=== PATIENT | female | born 1990 | race Caucasian/White ===

== ENCOUNTER → 2019-07-12 09:03 | Outpatient (CLI) | payer OTHER, SELFPAY ==
[2019-07-12 08:34] VITALS: BMI 22.8
[2019-07-12 09:47] LABS: Absolute Lymphocyte Count 1.71 X10^3/uL (0.83-4.51); Absolute Neutrophil Count 8.3 X10^3/uL (2.0-7.7); Basophil# 0.03 X10^3/uL; Basophil% 0.3 % (0-1); Eosinophil# 0.06 X10^3/uL; Eosinophils% 0.6 % (0-5); Hemoglobin 9.7 g/dL (12.0-15.0); Lymphocyte # 1.71 X10^3/ul (4.0); Lymphocyte % 15.7 % (19-41); Mean Corp Hgb Conc 32.3 g/dL (32-36); Mean Corpuscular Volume 89.6 fL (81-99); Mean Platelet Vol. 10.2 fl (6.2-12.0); Monocyte# 0.62 X10^3/uL; Monocyte% 5.7 % (0-10); NRBC Flagged by Analyzer 0 % (0-5); Neutrophil # 8.33 X10^3/uL (2.7-7.7); Neutrophil % 76.6 % (47-70); Platelet Count 205 K/mm3 (150-450); RBC Distribution Width CV 12.7 % (11.6-14.6); RBC Distribution Width SD 41.6 fl (35.1-43.9); Red Blood Count 3.35 M/mm3 (4.2-5.4); White Blood Count 10.9 K/mm3 (4.4-11.0)
[2019-07-12 09:59] LABS: Glucose Challenge Gest 1H 50g 128 mg/dL (70-140)
== END ==
PROVIDERS: Referring Provider Obstetrics & Gynecology; Visit Provider Obstetrics & Gynecology
DX: Z34.92 Encounter for supervision of normal pregnancy, unspecified, second trimester (principal); Z3A.27 27 weeks gestation of pregnancy
CPT/HCPCS: 36415; 82950; 85025

== ENCOUNTER → 2019-08-11 09:54 | Outpatient (CLI) | payer OTHER, SELFPAY ==
[2019-08-11 09:35] VITALS: BMI 22.8
[2019-08-11 10:08] LABS: Absolute Lymphocyte Count 1.46 X10^3/uL (0.83-4.51); Absolute Neutrophil Count 6.5 X10^3/uL (2.0-7.7); Basophil# 0.02 X10^3/uL; Basophil% 0.2 % (0-1); Eosinophil# 0.05 X10^3/uL; Eosinophils% 0.6 % (0-5); Hematocrit 33.1 % (37-47); Hemoglobin 10.7 g/dL (12.0-15.0); Lymphocyte # 1.46 X10^3/ul (4.0); Lymphocyte % 16.8 % (19-41); Mean Corp Hgb Conc 32.3 g/dL (32-36); Mean Corpuscular Hgb 30.6 pg (27.0-32.0); Mean Corpuscular Volume 94.6 fL (81-99); Mean Platelet Vol. 9.8 fl (6.2-12.0); Monocyte# 0.59 X10^3/uL; Monocyte% 6.8 % (0-10); NRBC Flagged by Analyzer 0 % (0-5); Neutrophil # 6.45 X10^3/uL (2.7-7.7); Neutrophil % 74.4 % (47-70); Platelet Count 180 K/mm3 (150-450); RBC Distribution Width CV 16.9 % (11.6-14.6); RBC Distribution Width SD 58.4 fl (35.1-43.9); White Blood Count 8.7 K/mm3 (4.4-11.0)
== END ==
PROVIDERS: Referring Provider Obstetrics & Gynecology; Visit Provider Obstetrics & Gynecology
DX: O99.019 Anemia complicating pregnancy, unspecified trimester (principal); D64.9 Anemia, unspecified; Z3A.00 Weeks of gestation of pregnancy not specified
CPT/HCPCS: 36415; 85025

== ENCOUNTER → 2019-09-16 | Outpatient (CLI) | payer OTHER, SELFPAY ==
[2019-09-16 09:21] VITALS: BMI 22.8
== END | disposition home or self-care (01) ==
LOC: LABSPEC 15:59
PROVIDERS: Referring Provider Obstetrics & Gynecology; Visit Provider Obstetrics & Gynecology
DX: O26.20 Pregnancy care for patient with recurrent pregnancy loss, unspecified trimester (principal); Z3A.00 Weeks of gestation of pregnancy not specified
CPT/HCPCS: 87081

== ENCOUNTER 2019-09-29 18:40 | Inpatient (IN) | payer OTHER, SELFPAY ==
[2019-08-11 09:35] VITALS: BMI 22.8
[2019-09-28 14:31] VITALS: BMI 22.8
[2019-09-29] VITALS (55 sets, daily range): BP systolic 90–131; BP diastolic 52–80; PULSE 69–115; TEMP 36.2–36.8; O2SAT 87–100; BMI 27.3
[2019-09-29] MEDS: Lactated Ringers 1,000 ML 50 ML IV (19:15)
[2019-09-29] MEDS: Lactated Ringers 500 ML 999 ML IV ×2 (19:16→22:14)
[2019-09-29 19:42] LABS: Absolute Lymphocyte Count 1.49 X10^3/uL (0.83-4.51); Absolute Neutrophil Count 11.8 X10^3/uL (2.0-7.7); Basophil# 0.02 X10^3/uL; Basophil% 0.1 % (0-1); Eosinophil# 0.03 X10^3/uL; Eosinophils% 0.2 % (0-5); Hematocrit 37.6 % (37-47); Hemoglobin 12.3 g/dL (12.0-15.0); Lymphocyte # 1.49 X10^3/ul (4.0); Lymphocyte % 10.4 % (19-41); Mean Corp Hgb Conc 32.7 g/dL (32-36); Mean Corpuscular Hgb 30.7 pg (27.0-32.0); Mean Corpuscular Volume 93.8 fL (81-99); Mean Platelet Vol. 11.9 fl (6.2-12.0); Monocyte# 0.91 X10^3/uL; Monocyte% 6.4 % (0-10); NRBC Flagged by Analyzer 0 % (0-5); Neutrophil % 82.5 % (47-70); Platelet Count 165 K/mm3 (150-450); RBC Distribution Width CV 15.5 % (11.6-14.6); RBC Distribution Width SD 53.8 fl (35.1-43.9); Red Blood Count 4.01 M/mm3 (4.2-5.4); White Blood Count 14.3 K/mm3 (4.4-11.0)
--- NOTE | 2019-09-29 19:51 | HP.PCM_ITS ---
- Problem List (1) Active labor at term Status: Acute (2) Anemia affecting Status: Acute Comment: stable iron. 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 weekly nsts until delivery. AC>99 percentile (5) Polyhydramnios affecting in third trimester Status: Acute Comment: weekly nst and IOL 39 weeks (6) Status: Acute Qualifiers: Comment: Carrier screening neg- 07/2018; declined NIPT. declined AFP. anatomy reviewed. (7) Pyelectasis of fetus on ultrasound Status: Acute Comment: nipt declined. resolved on last us. (8) Septate uterus Status: Acute Comment: Removed Dr. Richardson History and Physical Date of Admission: 09/29/19 Intake Vital Signs 09/28/19 Height 5 ft 9 in 09/28/19 Weight: 186 lb 8 oz 09/28/19 BMI 27.5 09/28/19 BP 118/88 H Intake Visit Reasons: 39 WK OB/NST Zanjero Required: No Is patient in pain?: No Allergies No Known Allergies Allergy (Verified 09/28/19 14:26) Medications aspirin 81 mg tablet,delayed release 81 mg PO DAILY 03/25/19 [History Confirmed 09/28/19] docosahexaenoic acid 200 mg capsule mg PO cap 03/25/19 [History Confirmed 09/28/19] ferrous sulfate 325 mg (65 mg iron) tablet 325 mg PO DAILY 09/09/19 [History Confirmed 09/28/19] Last Menstral Period: 11/11/18 Zika: Zika virus screening: Negative : No PFSH PFSH Medical History Septate uterus (Acute) Dysmenorrhea (Acute) Endometriosis determined by laparoscopy (Acute ~09/30/18) Mullerian anomaly of uterus (Resolved) Surgical History Chromotubation (Acute ~09/30/18) Hx of laparoscopy (Acute ~09/30/18) Hysteroscopic Metroplastic (Acute ~09/30/18) S/P arthroscopy of right shoulder (Resolved) Family History Father Lymphoma Prostate cancer Grandmother Heart disease Grandfather Heart disease Social History (Updated 09/28/19 @ 15:[address] Leonora Maher MD) Smoking Status: Never smoker alcohol intake: never substance use type: does not use caffeine: No what type of physical activity do you participate in: walking, weight training frequency: 3-4 times per week do you feel safe at home: Yes additional social history: Hwfpgry-Hmwv-DUND Patient is RN Pregancy History 3 Elective abortions Hx Para 0 Spontaneous abortions 2 Hx # Term Pregnancies Ectopic pregnancies Hx # Pregnancies Multiple births # of living children HPI 39 WK OB/NST: Details: LORI CESAR is a 28 year old G3, P0 at 38 weeks 5 days presents in active labor. Patient has had irregular contractions for the last 3 hours denies any vaginal bleeding or loss of fluid admits good movement. She has had a complicated by mild pyelectasis of the fetus and increased abdominal circumference and polyhydramnios. She had negative diabetes screening. OB Visit KAYLAH Calculator Estimated Delivery Date Method Current WG Current Estimate 10/08/19 Ultrasound #1 38w 4d Other Estimates 10/04/19 LMP (Certain) 39w 1d Expected Delivery Route/Plan childbirth classes in august Labor Preferences- labor support person: Horace pain management options preferred: epidural, minimal intervention cut cord/dad catch: yes : yes PP control planned: iud 6 weeks PP discussed possible routes of delivery and associated risks: yes no additional questions special requests: none Specific Issue/Plans flu vaccine: given tdap vaccine: given rhogam: na LARC form signed: declined movement and labor precautions reviewed. Problem list reviewed and updated with the most current plan of care details and appropriate orders placed. Relevant counseling for the gestational age provided. Continue routine care and follow up unless otherwise noted in visit notes/problem list details Initial Weight: 155 lb Date EGA Weight BP Urine Prot Glucose FHR FuHt Pres Dilation Effaced St Visit Note 03/25/19 11w 6d 155 lb (+0 oz) 111/72 Negative Negative 166 Trasnfer from RGI. Manageable nausea. No spotting or bleeding. FHT confirm with US 04/19/19 15w 3d 155 lb (+0 oz) 104/62 Negative Negative 145 no vb lof no regular ctx 05/17/19 19w 3d 160 lb 2 oz (+5 lb 2 oz) 129/80 Negative Negative 150 SM- no vb cramping 06/14/19 23w 3d 166 lb 3 oz (+11 lb 3 oz) 116/64 Negative Negative 145 SM- no vb cramping plan repeat growth us 07/12/19 27w 3d 171 lb (+16 lb) 130/82 Negative Negative 140 28 SM- no vb lof good fm no regular ctx 07/30/19 30w 0d 174 lb (+19 lb) 102/60 Negative Negative 145 31 SM- no vb lof fm no regular ctx 08/11/19 31w 5d 175 lb (+20 lb) 108/72 Negative Negative 145 33 SM- no vb lof no reg ctx 09/09/19 35w 6d 185 lb (+30 lb) 122/82 Negative Negative 140 35 Cephalic SM- no vb lof good fm no regular ctx 09/16/19 36w 6d 185 lb 2 oz (+30 lb 2 oz) 120/80 Negative Negative 140 39 Cephalic 2 40 -3 SM- no vb lof good fm no regular ctx gbs done 09/23/19 37w 6d 186 lb (+31 lb) 120/82 130 Cephalic 3 50 -2 SM- discussed no vb lof g ood fm no reuglar ctx discussed IOL rec by [facility] 09/28/19 38w 4d 186 lb 8 oz (+31 lb 8 oz) 118/88 Negative Negative 130 42 Cephalic 4 60 -2 SM- no vb lof good fm irr egular ctx plan IOL 39 weeks Notes Visit Date: 09/28/19 ??No visit notes to display Visit Date: 09/23/19 ??No visit notes to display Visit Date: 09/16/19 ??No visit notes to display Visit Date: 09/09/19 ??No visit notes to display Visit Date: 08/11/19 ??No visit notes to display Visit Date: 07/30/19 ??No visit notes to display Visit Date: 07/12/19 ??No visit notes to display Visit Date: 06/14/19 ??No visit notes to display Visit Date: 01/13/20 ??No visit notes to display Visit Date: 04/19/19 ??no vb lof no regular ctx ??Leonora Maher MD on 04/19/19 Visit Date: 03/25/19 ??Trasnfer from [facility]. Manageable nausea. No spotting or bleeding. FHT confirm with US ??RASHEED Diggs on 03/25/19 ACOG First Trimester First Trimester: Desire for , Anticipated Course of Care, Toxoplasmosis Precations, Use of Any medications, Sexual activity, Exercise, Sauna/Hot tub use, Seat Belt use, , Indications for US and Screening for Aneuploidy; discussed Alcohol, discussed Tobacco Cessation, discussed Illicit/Recreational Drug/Substance Use, discussed Intimate Partner Violence, discussed Unstable Housing or discussed Environmental/Work Hazards Second Trimester Second Trimester: Signs and Symptoms of Labor, Selecting a care provider, Reproductive Life Planning, Care Planning, Tobacco Cessation, Depression/Anxiety and Intimate Partner Violence Third Trimester Third Trimester: Pain Management Plans, Labor support person(s), Immediate Larc, Movement Monitoring and Feeding Yes ; discussed Trial of Labor after Counseling or discussed Circumcision pr eference Diagnostics Diagnostics Diagnostics Glucose 1 Hr 50 gm 128 mg/dL (70-140) 07/12/19 Hgb 10.7 g/dL (12.0-15.0) L 08/11/19 Hct 33.1 % (37-47) L 08/11/19 Details: HIV: Urine Culture: Sequential Screen: NIPT Screen: ROS Const Reports system reviewed and no additional complaints, except as docu Card Reports system reviewed and no additional complaints, except as docu Resp Reports system reviewed and no additional complaints, except as docu GI Reports system reviewed and no additional complaints, except as docu, Reports nausea Reports system reviewed and no additional complaints, except as docu Musc Reports system reviewed and no additional complaints, except as docu Exam Const General: cooperative, healthy appearing, comfortable, anxious HENMT Head: normal to inspection Nose: external nose normal Face and sinus: normal facial exam Neck Neck: normal visual inspection, full ROM, no lymphadenopathy Thyroid: thyroid normal Chest Chest palpation & inspection: normal inspection of the chest Resp Effort & Inspection: normal respiratory effort GI Inspection: normal to inspection Palpation: soft, other (gravid uterus) Other: vertex and large size for gestational age Other: Cervical Exam: Extrem General: pedal edema Office Procedures OB NST Non-Stress Test Indications for Monitoring: Yes other (polyhydramnios) Heart Rate Baseline: 130 Heart Rate Variability: moderate Movement: Present Heart Rate Accelerations: Present Decelerations: Absent Contractions: Absent Impression: Yes Reactive Non-Stress Test Category 1 Results POC Urinalysis 2 Dip (Clinic) Office Urine Glucose Negative Last Edit by Peyton Lee on 09/28/19 14:38 Office Urine Protein Negative Last Edit by Peyton Lee on 09/28/19 14:38 Assessment & Plan Problems 1. Polyhydramnios affecting in third trimester O40.3XX0 weekly nst and IOL 39 weeks 2. Macrosomia of fetus affecting management of mother in torres in third trimester O36.63X0 MFM recommendation for 39 week delivery. weekly nsts until delivery. AC>99 percentile 3. Anemia affecting O99.019 stable iron. 4. Pyelectasis of fetus on ultrasound O35.8XX0 nipt declined. resolved on last us. 5. Septate uterus Q51.[address] Richardson 6. 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 38 weeks gestation of Z3A.38 Carrier screening neg- 07/2018; declined NIPT. declined AFP. anatomy reviewed. 28-year-old at 38 weeks 5 days presents in active labor 5 cm dilated Patient presents IAL, plan expectant management for , [pitocin/AROM if needed]. Pain management: [plans epidural]. GBS negative Management of any complications: [none] I have reviewed the [facility] and made any clinically relevant updates. 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
[2019-09-29] MEDS: fentaNYL-bupivacaine (epidural) 100 ML BAG EPIDURAL (20:39)
[2019-09-30] VITALS (62 sets, daily range): BP systolic 92–186; BP diastolic 51–141; PULSE 65–190; RESP 14–18; TEMP 36.4–37.3; O2SAT 83–100
[2019-09-30] MEDS: fentaNYL-bupivacaine (epidural) 100 ML BAG EPIDURAL ×2 (00:52→06:14)
[2019-09-30] MEDS: Lactated Ringers 1,000 ML 200 ML IV ×2 (01:21→06:31)
[2019-09-30] MEDS: Ondansetron 4 MG/2 ML Vial IV (01:47)
--- NOTE | 2019-09-30 06:34 | PCM.PN.BLA ---
Progress Note epidural replaced, fht 160-165 min- mod variability early decels cat II tracing, will resume pushing once complete with epidural. afebrile STROKE Vital Signs/Narrative: Vital Signs Temp Pulse BP Pulse Ox 09/30/19 06:32 88 111/60 09/30/19 06:27 81 129/73 H 09/30/19 06:22 76 122/72 H 09/30/19 06:17 69 137/81 H 09/30/19 06:12 78 120/68 09/30/19 06:03 98 96 09/30/19 05:58 90 95 09/30/19 05:53 89 96 09/30/19 04:53 98.0 F 09/30/19 04:41 72 105/57 L 09/30/19 04:36 81 108/54 L 09/30/19 04:32 74 115/57 L 09/30/19 04:26 88 105/55 L 09/30/19 04:22 94 93 09/30/19 04:21 190 H 186/140 H 09/30/19 04:20 171/141 H 09/30/19 04:13 75 108/58 L 09/30/19 04:10 98.6 F 09/30/19 04:08 76 104/58 L 09/30/19 04:02 81 128/85 H 09/30/19 03:02 98.9 F 09/30/19 02:40 81 123/60 H 09/30/19 02:35 100 139/105 H
[2019-09-30] MEDS: Lactated Ringers 500 ML 999 ML IV (06:49)
--- NOTE | 2019-09-30 07:45 | OP.PCM_ITS ---
Problem List (1) Active labor at term Status: Acute (2) Anemia affecting Status: Acute Comment: stable iron. 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 weekly nsts until delivery. AC>99 percentile (5) Polyhydramnios affecting in third trimester Status: Acute Comment: weekly nst and IOL 39 weeks (6) Status: Acute Qualifiers: Comment: Carrier screening neg- 07/2018; declined NIPT. declined AFP. anatomy reviewed. (7) Pyelectasis of fetus on ultrasound Status: Acute Comment: nipt declined. resolved on last us. (8) Septate uterus Status: Acute Comment: Removed Dr. Richardson Vaginal Delivery Maternal Presentation: Active Labor ial 8w5d Amniotic Fluid Description: Clear Final KAYLAH: 10/08/19 Gestational age: 39 Weeks and 0 Days Date of Procedure: 09/30/19 Pre-Operative Diagnosis: ial Post-Operative Diagnosis: same Surgery/ Procedure Performed: Spontaneous Vaginal Delivery Type of Anesthesia: Epidural Description of Procedure: Patient began pushing and delivered the head in the direct OP presentation. The head was delivered atraumatically. The anterior and posterior shoulders de livered without complication followed by the rest of the and the infant was placed on the maternal abdomen. Delayed cord clamping was employed for approximately 60 seconds. Cord was clamped and cut and gentle traction was applied to the cord and the placenta delivered spontaneously immediately following it was noted to be intact with three-vessel cord. The perineum and vagina were inspected and noted to have a second degree laceration repaired in the usual fashion. EBL was 300 cc. Patient and infant tolerated delivery well. Presentation: ROP Placental Delivery Description: Spontaneous Placenta Disposition: [facility] Cord Vessel Description: 3 Vessels Cord Entanglement: None Estimated Blood Loss: 300 A gender: Male Episiotomy Description: None Laceration: Perineal Extension/lac, 2nd degree Medications given after delivery: IV Pitocin Complications: None Multi Select Codes - Urinary/Genital Urinary/Genital CPT Codes: 27707 Vaginal Delivery [facility]
--- NOTE | 2019-09-30 07:57 | NURSING ---
RN confirmed that patient is okay with all three baby medications.
[2019-09-30] MEDS: Oxytocin 30 units/NS 500 ml 30 UNITS/500 ML IV.SOLN 334 UNITS IV (08:05)
[2019-09-30] MEDS: Naproxen 250 MG Tablet 500 MG PO ×2 (10:52→19:54)
[2019-09-30] MEDS: Acetaminophen 500 MG Tablet 1000 MG PO (12:15)
[2019-09-30] MEDS: oxyCODONE 5 MG Tablet PO (22:00)
[2019-10-01] VITALS (8 sets, daily range): BP systolic 100–115; BP diastolic 63–72; PULSE 71–75; RESP 14–18; TEMP 36.2–36.4
[2019-10-01] MEDS: Acetaminophen 500 MG Tablet 1000 MG PO ×2 (00:30→09:35)
--- NOTE | 2019-10-01 01:22 | NURSING ---
Swelling reduced from previous assessment. Pt grooving lathe tender. RN removed celis catheter at this time per MD orders. Catheter intact, pt tolerated well. RN encouraged pt to continue drinking water and notify RN if unable to void. RN also encouraged pt to continue taking pain medication when available to better manage pain.
[2019-10-01] MEDS: oxyCODONE 5 MG Tablet PO (03:31)
[2019-10-01] MEDS: Naproxen 250 MG Tablet 500 MG PO (04:11)
--- NOTE | 2019-10-01 04:51 | DCINST_ITS ---
Discharge Diet: No Restrictions Discharge Activity: Return to Normal Activity, May not drive while taking narcotic pain medications., May Shower May resume sexual activity in: 4-6 weeks Call your doctor if your incision/area has: Continuous Slow Oozing, Sudden Increased Bleeding, Increased Pain/ Swelling, Increased Redness, Foul Smelling Discharge Additional Instructions: If you experience any of the following, contact your healthcare provider. * Bleeding that soaks a pad every hour for 2 hours * Fever 100.4 or higher * Unrelieved incision or abdominal pain * Swelling, redness, discharge or bleeding from your incision or episiotomy site * Your incision begins to separate * Problems urinating (including inability to urinate or burning while urinating). * Visual changes * Severe headache * Flu-like symptoms * Pain or redness in one of both of your breasts * Pain, warmth, tenderness or swelling in your legs, especially the calf area * Frequent nausea and vomiting * Symptoms of depression or anxiety If you experience any of the following, call 911 or go to the nearest Emergency Room. * Chest pain * Problems breathing * Seizure activity * Partial or complete paralysis of a body part, slurred speech, weakness or drooping of the face, or a sudden inability to walk or hold your balance Allergies/Adverse Reactions: Allergies No Known Allergies Allergy (Verified 09/29/19 19:45) Medications to take at Discharge docosahexaenoic acid 200 mg capsule 200 mg PO DAILY cap 03/25/19 ferrous sulfate 325 mg (65 mg iron) tablet 325 mg PO DAILY 09/09/19 Pnv No.95/Ferrous Fum/Folic AC [ Vitamin Tablet] 1 tab PO DAILY 09/29/19 Please Follow Up With: Leonora Maher MD - [phone] When: Call to make an appointment with your doctor in 6 weeks. If you had elevated Blood pressure or 4th degree laceration you will need to be seen in 2 weeks. Primary Care Physician: Care Physician,No Primary [Primary Care Provider] - Test Results: Test results from this visit will be discussed in further detail at your follow- up appointment, if applicable.
--- NOTE | 2019-10-01 04:51 | PCM.PN.OB ---
Patient Problems: Active and Suspected Problems (Last Reviewed 09/28/19 @ 14:26 by Peyton Lee) Active labor at term (Acute) Subjective: doing well no complaints pain controlled no CP SOB N V ambulating well tolerating po lochia moderate, going well - Physical Exam Vitals/I&O's: Vital Signs Temp Pulse Resp BP Pulse Ox 97.5 F L 71 16 115/72 97 10/01/19 04:14 10/01/19 04:14 10/01/19 04:14 10/01/19 04:14 09/30/19 19:59 Oxygen Delivery Method Room Air Weight: 185 lb 8 oz Body Mass Index (BMI) 27.3 Intake and Output for Last 24 Hours 09/29/19 09/30/19 10/01/19 23:59 23:59 23:59 Intake Total 1484.16 / 1484.16 2709.17 / 2709.17 Output Total 2100 / 2100 Balance 1484.16 / 1484.16 609.17 / 609.17 General: Alert, Oriented x3 Current Medications Acetaminophen (Tylenol) 1,000 mg PO Q8H PRN PRN PRN Reason: Pain Score 1-3/10 Last Admin: 10/01/19 00:30 Dose: 1,000 mg Documented by: Bisacodyl (Dulcolax) 10 mg RECTAL UD PRN PRN Reason: If no BM Dibucaine (Dibucaine) 1 applic TOPICAL TID PRN PRN; Protocol PRN Reason: Discomfort Hydrocortisone (Hytone) 1 applic TOPICAL TID PRN PRN; Protocol PRN Reason: Discomfort Methylergonovine Maleate (Methergine) 0.2 mg IM X1 PRN PRN Reason: Excess bleeding/uterine atony Naproxen (Naprosyn) 500 mg PO Q8H PRN PRN PRN Reason: Pain Score 1-3/10 Last Admin: 10/01/19 04:11 Dose: 500 mg Documented by: Ondansetron HCl (Zofran) 4 mg IV Q4H PRN PRN PRN Reason: Nausea Oxycodone HCl (Oxyir) 5 - 10 mg PO Q4H PRN PRN PRN Reason: Pain Score 4-10/10 Last Admin: 10/01/19 03:31 Dose: 5 mg Documented by: Senna/Docusate Sodium (Senokot-S, Jeanna-Colace) 1 - 2 tablet PO DAILY PRN PRN PRN Reason: Constipation Simethicone (Mylicon) 80 mg PO PCHS PRN PRN Reason: Indigestion/Stomach pain Sodium Chloride () 5 - 15 ml IV UD PRN PRN Reason: SALINE FLUSH Medical Necessity - Tobacco Use Smoking Status: Never smoker Assessment/Plan All Active Problems (Last Reviewed 09/28/19 @ 14:26 by Peyton Lee) Active labor at term (Acute) Polyhydramnios affecting in third trimester (Acute) Macrosomia of fetus affecting management of mother in torres in third trimester (Acute) Anemia affecting (Acute) Pyelectasis of fetus on ultrasound (Acute) Septate uterus (Acute) 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 routine post delivery care 2. breast feeding- support given 3. rh positive 4. rubella immune
--- NOTE | 2019-10-01 16:38 | NURSING ---
Late entry 09/30/19-1700- Spoke with SM about having to have urinary cath x 2 with output at 900cc d/t urinary retention. Plan to leave celis cath in for 6 hours, then D/C and reassess urine output.
== END 2019-10-01 12:50 | disposition home or self-care (01) | DRG 807 ==
PROVIDERS: Admitting Provider Obstetrics & Gynecology; Referring Provider Obstetrics & Gynecology; Visit Provider Obstetrics & Gynecology
DX: O99.02 Anemia complicating childbirth (principal); D64.9 Anemia, unspecified; O26.23 Pregnancy care for patient with recurrent pregnancy loss, third trimester; O36.63X0 Maternal care for excessive fetal growth, third trimester, not applicable or unspecified; O40.3XX0 Polyhydramnios, third trimester, not applicable or unspecified; O76 Abnormality in fetal heart rate and rhythm complicating labor and delivery; O70.1 Second degree perineal laceration during delivery; Z79.899 Other long term (current) drug therapy; Z3A.39 39 weeks gestation of pregnancy; Z37.0 Single live birth
CPT/HCPCS: 59025; 59050; 85025; 86850; 86900; 86901; 87635; 99218; G2023; J7120; G0378; J2405; J3490; U0004

== ENCOUNTER → 2020-12-04 09:00 | Outpatient (CLI) | payer OTHER, SELFPAY ==
[2020-12-01 09:20] VITALS: BMI 21.5
[2020-12-04 09:50] LABS: hCG Titer Quant., Serum 1237 mIU/mL (1-3)
== END ==
PROVIDERS: Referring Provider Obstetrics & Gynecology; Visit Provider Obstetrics & Gynecology
DX: N91.2 Amenorrhea, unspecified (principal)
CPT/HCPCS: 36415; 84702

== ENCOUNTER → 2020-12-06 08:37 | Outpatient (CLI) | payer OTHER, SELFPAY ==
[2020-12-01 09:20] VITALS: BMI 21.5
[2020-12-06 09:56] LABS: hCG Titer Quant., Serum 2298 mIU/mL (1-3)
== END ==
PROVIDERS: Referring Provider Obstetrics & Gynecology; Visit Provider Obstetrics & Gynecology
DX: N91.2 Amenorrhea, unspecified (principal)
CPT/HCPCS: 36415; 84702

== ENCOUNTER → 2021-01-10 | Outpatient (CLI) | payer OTHER, SELFPAY | END | disposition home or self-care (01) | LOC: LABSPEC 15:37 | PROVIDERS: Referring Provider Obstetrics & Gynecology; Visit Provider Obstetrics & Gynecology | DX: Z12.4 Encounter for screening for malignant neoplasm of cervix (principal) | CPT/HCPCS: 87624; 88175; G0145 ==

== ENCOUNTER 2021-01-12 10:01 | Day surgery (SDC) | payer OTHER, SELFPAY ==
--- NOTE | 2021-01-12 | POC_PTH ---
PATIENT: LORI CESAR [place] [facility] [id number] AGE/SX: 30/ ROOM: RE01/12/[address]: Dr. Leonora Maher MD : 1990 BED: DIS: 01/12/2021 SPEC #: [id number] RECD: 01/12/21 13:18 STATUS: BLAISE RESouleymane #: [id number] FRANCES: 01/12/21 00:[address]: Leonora Maher DEPT: SURGICAL PATHOLOGY RECD BY: Yordy Amador ENTERED: 01/12/21 13:18 SP TYPE: PROD CONC OTHR DR: No Primary Care Phys Tissues: Product of conception, NOS Procedures: Surgery Specimen Level IV HEADER OPERATION: Dilation and curettage, suction PRE-OP DIAGNOSIS: Missed TISSUE SUBMITTED: Products of conception (Anora) MICROSCOPIC DIAGNOSIS Products of conception: [place]id[place], gestational endometrium and immature chorionic villi (products of conception). See comment. SJ:paul 01/15/2021 COMMENT Results of Anora study will be reported separately as an addendum. MICROSCOPIC DESCRIPTION Slides are reviewed. GROSS DESCRIPTION Received in fixative is one container labeled with the patient's name and designated products of conception. The specimen consists of multiple irregular fragments of light coreas soft tissue that in aggregate measure 10 x 10 x 0.5 cm. [employer] sections are submitted in one cassette. A portion of tissue is submitted for Anora study. / AM:apul 01/12/21 TC:5 CPT: 50539
[2021-01-12 10:35] VITALS: BP 121/77; PULSE 88; RESP 18; TEMP 36.3; O2SAT 100; BMI 21.2
[2021-01-12] MEDS: Lactated Ringers 1,000 ML 100 ML IV (10:40)
[2021-01-12 10:54] LABS: Absolute Lymphocyte Count 1.22 X10^3/uL (0.83-4.51); Absolute Neutrophil Count 4.4 X10^3/uL (2.0-7.7); Basophil# 0.02 X10^3/uL; Basophil% 0.3 % (0-1); Eosinophil# 0.09 X10^3/uL; Eosinophils% 1.5 % (0-5); Hematocrit 39.9 % (37-47); Lymphocyte # 1.22 X10^3/ul (0.83-4.51); Lymphocyte % 20.1 % (19-41); Mean Corp Hgb Conc 32.6 g/dL (32-36); Mean Corpuscular Hgb 29.5 pg (27.0-32.0); Mean Corpuscular Volume 90.5 fL (81-99); Mean Platelet Vol. 9.5 fl (6.2-12.0); Monocyte# 0.37 X10^3/uL; Monocyte% 6.1 % (0-10); NRBC Flagged by Analyzer 0 % (0-5); Neutrophil # 4.35 X10^3/uL (2.7-7.7); Neutrophil % 71.7 % (47-70); Platelet Count 193 K/mm3 (150-450); RBC Distribution Width CV 12.1 % (11.6-14.6); RBC Distribution Width SD 40.4 fl (35.1-43.9); Red Blood Count 4.41 M/mm3 (4.2-5.4); White Blood Count 6.1 K/mm3 (4.4-11.0)
[2021-01-12] MEDS: Doxycycline 100 MG CAPSULE PO (11:07)
--- NOTE | 2021-01-12 12:33 | HP.PCM_ITS ---
History and Physical Date of Admission: 01/12/21 Intake Visit Reasons: NOB LMP 10/28/20 Chief Complaint: NEW OB LMP 10/28/20 Full Stack Software Developer Required: No Is patient in pain?: No Allergies No Known Allergies Allergy (Verified 12/22/20 13:14) Medications multivitamin no.47-iron fum 27 mg-folate no.1 1 mg-dha 300 mg capsule cap PO 12/22/20 [History Confirmed 01/10/21] Last Menstral Period: 10/28/20 Zika: Zika virus screening: Negative : No PFSH PFSH Medical History COVID-19 Dysmenorrhea Endometriosis determined by laparoscopy (~09/30/18) Mullerian anomaly of uterus Septate uterus Surgical History Chromotubation (~09/30/18) Hx of laparoscopy (~09/30/18) Hysteroscopic Metroplastic (~09/30/18) S/P arthroscopy of right shoulder Family History Father Lymphoma Prostate cancer Grandmother Heart disease Grandfather Heart disease Social History Smoking Status: Never smoker alcohol intake: never substance use type: does not use caffeine: No what type of physical activity do you participate in: walking and weight training frequency: 3-4 times per week do you feel safe at home: Yes additional social history: [id number] Patient is RN Pregancy History 4 Elective abortions Hx Para 1 Spontaneous abortions 2 Hx # Term Pregnancies 1 Ectopic pregnancies Hx # Pregnancies Multiple births # of living children 1 Past Pregnancies Del. Date Name GA/Weeks Outcome Route Bth Weight Infant Gen Labor Lgth Anesthesia Del Locatn Provider FOB 09/30/19 Derek 38 live - full term 10lbs 5oz Male 12 hours epidural [facility] Dr. Leonora Vu Delivery Date: 09/30/19 Poly, macrosomia Lesia Hinojosa HPI NOB LMP 10/28/20 Details: LORI CESAR is a 30 year old who presents for New OB visit. she denies any bleeding or significant cramping denies any fevers or pain. she has had a positive test for at least 4 weeks and had appropriately rising quants 48 hours apart preivously. repeat viti 01/12 confirmed no FHT same CRL 6 mm with demise confirmed OB Visit KAYLAH Calculator Estimated Delivery Date Method Current WG Current Estimate 08/04/21 LMP (Certain) 10w 5d Estimated Due Date: 08/04/21 Expected Delivery Route/Plan Labor Preferences- CB/BF classes: [] labor support person: [] labor intervention preferences: [] pain management options preferred: [] cut cord/dad catch: [] : [] PP control planned: [] discussed possible routes of delivery and associated risks: [] special requests: [] Specific Issue/Plans Covid status: pos in june, counseled regarding risk of covid in vs vaccination and declined vaccination Flu vaccine: [] Tdap vaccine: [] Rhogam: [] LARC form signed: [] Problem list reviewed and updated with the most current plan of care details and appropriate orders placed. Relevant counseling for the gestational age provided. Continue routine care and follow up unless otherwise noted in visit notes/problem list details Initial Weight: 144 lb Date EGA Weight BP Urine Prot Glucose FHR FuHt Pres Dilation Effaced St Visit Note 01/10/21 10w 4d 144 lb (+0 oz) 114/72 SM- CRL cons with LMP no FHT seen and CRL 6 mm not consistent with LMP MSD 7 w 23 mm. unclear viability will fu in 2 days and plan suction d and c if unviable Menstrual History Last Menstral Period: 10/28/20 Reported LMP: definite Normal amount/duration: Yes On hormonal BC at conception: No Antepartum Record Genetic Screening: Congenital Heart Defect: Other, Neural Tube Defect: Other, Hemoglobinopathy Or Carrier: Other, Cystic Fibrosis: Other, Chromosome Abnormality: Other, Russell-Sachs: Other, Hemophilia: Other, Intellectual Disability/Autism: Other, Recurrent Loss/Stillbirth: Patient (patient), Other Structural Defect: Other, Other Genetic Disease: Other and Maternal Metabolic Disorder: Other Infection History: Live with someone with TB or Exposed to TB: No, Patient or Partner has history of Genital Herpes: No, Rash or Viral illness since last mentrual period: No, Prior GBS-Infected child: No, History of STD: No, HIV Infection: No, History of Hepatitis: No, Recent travel outside of [place]: No, Concern for hepatitis exposure: No and Varicella immune: Yes Medical History Medical History: Positive: Infertility and Negative: Diabetes, Hypertension, Heart disease, Auto-immune disorder, Kidney disease/UTI, Neurologic/epilepsy, Psychiatric, Depression/ depression, Hepatitis/liver disease, Varicosities/phlebitis, Thyroid dysfunction, Trauma/domestic violence, History of blood transfusions, D (Rh) Sensitized, Pulmonary (e.g.,TB,Asthma), Seasonal allergies, Drug/latex allergies/reactions, Breast, Inside Barrel Polisher surgery, Operations/hospitalizations, Anesthetic complications, History of abnormal pap, Uterine anomaly/georges, Anti-retroviral treatment, Relevant family history and Other ACOG First Trimester First Trimester: Desire for , Anticipated Course of Care, Toxoplasmosis Precations, Use of Any medications, Sexual activity, Exercise, Sauna/Hot tub use, Seat Belt use, , Indications for Ultrasound and Screening for Aneuploidy; Discussed Alcohol, Discussed Tobacco Cessation, Discussed Illicit/Recreational Drug/Substance Use, Discussed Intimate Partner Violence, Discussed Unstable Housing and Discussed Environmental/Work Hazards Second Trimester Second Trimester: Signs and Symptoms of Labor, Selecting a care provider, Reproductive Life Planning & Contreception, Care Planning, Tobacco Cessation, Depression/Anxiety and Intimate Partner Violence Third Trimester Third Trimester: Pain Management Plans, Labor support person(s), Immediate Larc and Movement Monitoring; Discussed Trial of Labor after Counseling and Discussed Circumcision preference ROS Const Reports system reviewed and no additional complaints, except as documented, Reports fatigue and Denies fever(s) Eyes Reports system reviewed and no additional complaints, except as documented ENT Reports system reviewed and no additional complaints, except as documented Card Denies chest pain and Denies dyspnea Resp Reports system reviewed and no additional complaints, except as documented, Denies cough and Denies dyspnea GI Denies abdominal pain and Reports nausea Reports system reviewed and no additional complaints, except as documented Musc Reports system reviewed and no additional complaints, except as documented Skin/Breast Reports system reviewed and no additional complaints, except as documented Neuro Yes system reviewed and no additional complaints, except as documented Psych Reports system reviewed and no additional complaints, except as documented Endo Reports system reviewed and no additional complaints, except as documented and Reports fatigue Exam Const General: healthy appearing, comfortable and no acute distress Orientation: alert HENMT Head: normal to inspection, normocephalic and atraumatic Ears: hearing grossly normal bilaterally and external ears normal Nose: external nose normal and nares normal Mouth: oral mucosae normal Teeth and gingiva: dentition normal Eyes General: appearance normal, both eyes and all related structures Neck Neck: normal visual inspection, no lymphadenopathy and supple Thyroid: thyroid normal Chest Chest palpation & inspection: normal inspection of the chest Breast inspection: normal inspection of the breasts and normal inspection of the axillae Breast palpation: normal palpation of the breasts and normal palpation of the axillae Resp Effort & Inspection: normal respiratory effort GI Inspection: normal to inspection Palpation: soft and no hepatosplenomegaly General: bladder normal to palpation External Female Exam: normal external appearance and normal appearance of the urethra Urethra: normal appearance of the urethra Speculum Exam - Vagina: normal appearance of the vagina and normal vaginal discharge Speculum Exam - Cervix: normal appearance of the cervix Bimanual Exam- Vagina & Uterus: normal bimanual exam, bladder normal to palpation, non-tender and other Bimanual Exam- Adnexa, other: non-tender Skin General: no rashes or lesions noted Neuro Motor: muscle tone normal throughout and no movement abnormalities noted Extrem General: normal to inspection and full ROM Supplemental Info ACOG book given and patient encouraged to read about nutrition, exercise, weight gain, and food avoidance in . Coding Level of Care Code Off vis,est,level 4 Assessment & Plan Assessment/Plan (1) Missed :
--- NOTE | 2021-01-12 12:34 | OP.PCM_ITS ---
Problems Associated Problem List Diagnoses (1) Missed : Report of Operation Pre-Operative Diagnosis: see problem list Post-Operative Diagnosis: same Surgery/Procedure Performed:: D&C hysteroscopy family and divorce legal assistant: None Type of Anesthesia: Local MAC Special Medications: none Specimen's removed: EMC Drains: none Estimated Blood Loss (mL): 50 Fluids Replaced: crystalloid Description of Procedure: Patient was prepped and draped in a normal sterile fashion under MAC anesthesia. A weighted speculum was placed in the vagina and the anterior lip of the cervix was grasped with a single-tooth tenaculum. A paracervical block was placed with 1% lidocaine. Cervix was progressively dilated to allow passage of a 5 mm hysteroscope. The lining was fully visualized and noted to have[ ] . Uterine sounded to [ ] cm. Curettage was performed and [ ] , sent to pathology. All instruments were removed from the vagina and excellent hemostasis was noted. Patient was awoken and taken to recovery in stable condition. Grafts/Implants Used: none Complications none Admit VTE Documentation VTE Present on Admission: No VTE Mechan Device Prophylaxis: SCD's Multi Select Codes Urinary/Genital Urinary/Genital CPT Codes: 56487 Hysteroscopy,EMC, Polypectomy
--- NOTE | 2021-01-12 12:37 | EX.PCM.DISCH ---
Discharge Instructions Procedure D&C Diet Discharge Diet: No restrictions Activity Discharge Activity: Return to Normal Activity, May Shower and May Take a Tub Bath (after 1 week) May resume sexual activity in: 1-2 weeks Weight Bearing Status: Weight bearing as tolerated Lifting Restrictions: none Dressing / Incision Call your doctor if you observe: Fever of 101 or Higher, Using more than 1 pad per hour, Shortness of breath and Uncontrolled pain Follow Up Care Please Follow Up With: Leonora Maher MD When: Call [phone] to schedule appointment. Test Results: Test results from this visit will be discussed in further detail at your follow-up appointment, if applicable. Discharge Plan Admission Primary Reason for Your Visit: suction d and c Attending Provider: Leonora Maher Primary Care Provider: Care Physician,Katlin Primary Discharge Orders/Prescriptions Prescriptions: New naproxen 250 MG tablet 250 - 500 mg PO Q8H PRN PRN (Reason: MILD PAIN) Qty: 30 RF: 1 oxycodone-acetaminophen [Percocet] 5-325 mg tablet 1 tab PO Q6H PRN (Reason: pain) 7 Days Qty: 10 RF: 0 Continued PNV-DHA 27 mg iron-1 mg -300 mg capsule 1 cap PO DAILY RF: 0 Referrals / Follow Up: Care Physician,No Primary [Primary Care Provider] - Disposition Disposition (needs filled in before D/C Order can be placed): Home, Self Care
[2021-01-12] MEDS: Lidocaine 1% (20 ml mdv) 20 ML Vial (12:40)
--- NOTE | 2021-01-12 12:47 | OP.PCM_ITS ---
Problems Associated Problem List Diagnoses (1) Missed : Report of Operation Pre-Operative Diagnosis: see problem list Post-Operative Diagnosis: same Surgery/Procedure Performed:: Suction dilation and curettage Description of Surgical Findings:: no FHT present, Nonviable 6-10 weeks sales recruitment specialist: None Type of Anesthesia: Local MAC Special Medications: none Specimen's removed: POC Drains: none Estimated Blood Loss (mL): 50 Fluids Replaced: crystalloid Description of Procedure: Patient was taken to the operating room and placed under MAC local anesthesia. She was prepped and draped in the normal sterile fashion the dorsal lithotomy position. Bladder was drained of clear urine and anterior lip of the cervix was grasped and the uterus sounded to 10cm. Cervix was progressively dilated to allow passage of a 10mm suction curette. Progressive passes were made removing the retained products of conception without complication. Sharp curettage confirmed complete removal of the retained products. All instruments were removed from the vagina and excellent hemostasis was noted and the patient was taken to recovery in stable condition. Grafts/Implants Used: none Complications none Admit VTE Documentation VTE Present on Admission: No VTE Mechan Device Prophylaxis: SCD's Procedures Urinary/Genital 52xxx-59xxx: 54117 Surg Trtmt missed Ab, 1TM
[2021-01-12 13:00] VITALS: BP 105/62; BP 121/77; PULSE 83; RESP 16; TEMP 36.1; O2SAT 100
[2021-01-12 13:05] VITALS: BP 121/77; BP 98/59; PULSE 74; RESP 16; O2SAT 100
[2021-01-12 13:10] VITALS: BP 102/59; BP 121/77; PULSE 73; RESP 16; O2SAT 100
[2021-01-12 13:15] VITALS: BP 105/64; BP 121/77; PULSE 77; RESP 16; TEMP 36.6; O2SAT 100
[2021-01-12 14:06] VITALS: BP 100/69; BP 121/77; PULSE 72; RESP 16; TEMP 36.8; O2SAT 99
[2021-01-12 14:30] LABS: ANORA MAILED SPECIMEN
[2021-01-15 03:06] LABS: Dilute Prothrombin Time (dPT) 31.2 sec (0.0-55.0); Dilute Russell Viper Venom 30.9 sec (0.0-47.0); Thrombin Time 16.1 sec (0.0-23.0); dPT Confirm Ratio 0.86 Ratio (0.00-1.40)
[2021-01-15 13:37] LABS: Pathology Specimen OB SEE PATHOLOGY REPORT
[2021-01-15 16:41] LABS: Anti-Cardiolipin Ab, IgA, Qn < 9 APL U/mL (0-11); Anti-Cardiolipin Ab, IgG, Qn < 9 GPL U/mL (0-14); Anti-Cardiolipin Ab, IgM, Qn 17 MPL U/mL (0-12); Beta-2-Glycoprotein I IgA <9 (0-25); Beta-2-Glycoprotein I IgG <9 (0-20); Beta-2-Glycoprotein I IgM <9 (0-32); Interpretation Comment: (.)
== END 2021-01-12 14:07 | disposition home or self-care (01) ==
LOC: SDC 10:01 → AC 10:02
PROVIDERS: Referring Provider Obstetrics & Gynecology; Visit Provider Obstetrics & Gynecology
PROC: (CPT 59820; principal; 2021-01-12 11:45)
DX: O02.1 Missed abortion (principal); Z20.822 Contact with and (suspected) exposure to COVID-19; O26.91 Pregnancy related conditions, unspecified, first trimester; O34.01 Maternal care for unspecified congenital malformation of uterus, first trimester; Q51.28 Other and unspecified doubling of uterus; Z3A.00 Weeks of gestation of pregnancy not specified
CPT/HCPCS: 01965; 59820; 85025; 86146; 86147; 86850; 86900; 86901; 87426; 88305; C9803; J7120; J2405

== ENCOUNTER → 2021-02-19 08:01 | Outpatient (CLI) | payer OTHER, SELFPAY ==
[2021-02-19 08:46] LABS: hCG Titer Quant., Serum 4 mIU/mL (1-3)
== END ==
PROVIDERS: Referring Provider Obstetrics & Gynecology Reproductive Endocrinology; Visit Provider Obstetrics & Gynecology Reproductive Endocrinology
DX: Z32.00 Encounter for pregnancy test, result unknown (principal)
CPT/HCPCS: 36415; 84702

== ENCOUNTER → 2021-02-26 10:36 | Outpatient (CLI) | payer OTHER, SELFPAY ==
[2021-02-27 14:56] LABS: Anti-Cardiolipin Ab, IgG, Qn < 9 GPL U/mL (0-14); Anti-Cardiolipin Ab, IgM, Qn 18 MPL U/mL (0-12)
== END ==
PROVIDERS: Referring Provider Obstetrics & Gynecology Reproductive Endocrinology; Visit Provider Obstetrics & Gynecology Reproductive Endocrinology
DX: N96 Recurrent pregnancy loss (principal)
CPT/HCPCS: 36415; 86147

== ENCOUNTER → 2021-03-30 08:35 | Outpatient (CLI) | payer OTHER, SELFPAY ==
[2021-03-30 09:27] LABS: hCG Titer Quant., Serum 1536 mIU/mL (1-3)
== END ==
PROVIDERS: Visit Provider Obstetrics & Gynecology Reproductive Endocrinology
DX: Z32.01 Encounter for pregnancy test, result positive (principal)
CPT/HCPCS: 36415; 84702

== ENCOUNTER → 2021-04-02 08:32 | Outpatient (CLI) | payer OTHER, SELFPAY ==
[2021-04-02 09:55] LABS: hCG Titer Quant., Serum 5189 mIU/mL (1-3)
== END ==
PROVIDERS: Referring Provider Obstetrics & Gynecology Reproductive Endocrinology; Visit Provider Obstetrics & Gynecology Reproductive Endocrinology
DX: Z32.01 Encounter for pregnancy test, result positive (principal)
CPT/HCPCS: 36415; 84702

== ENCOUNTER 2021-05-29 14:11 | Outpatient (CLI) | payer OTHER, SELFPAY ==
[2021-05-29 14:53] LABS: Hemoglobin A1c 5.5 % (3.8-5.6)
== END 2021-05-29 23:59 | disposition short-term general hospital (02) ==
LOC: PAVLAB 14:11
PROVIDERS: Referring Provider Obstetrics & Gynecology; Visit Provider Obstetrics & Gynecology
DX: O09.299 Supervision of pregnancy with other poor reproductive or obstetric history, unspecified trimester (principal); Z3A.00 Weeks of gestation of pregnancy not specified
CPT/HCPCS: 36415; 83036

== ENCOUNTER → 2021-08-23 | Outpatient (CLI) | payer OTHER, SELFPAY ==
[2021-08-23 12:08] LABS: Glucose Challenge Gest 1H 50g 145 mg/dL (70-140)
[2021-08-23 19:34] LABS: Xtra Tube EP Lab EXTRA TUBE
== END | disposition home or self-care (01) ==
LOC: PAVLAB 11:15
PROVIDERS: Referring Provider Obstetrics & Gynecology; Visit Provider Obstetrics & Gynecology
DX: Z34.90 Encounter for supervision of normal pregnancy, unspecified, unspecified trimester (principal); Z3A.21 21 weeks gestation of pregnancy
CPT/HCPCS: 36415; 82950

== ENCOUNTER → 2021-08-29 | Outpatient (CLI) | payer OTHER, SELFPAY ==
[2021-08-29 07:27] LABS: Glucose GTT-Gestation. Fasting 92 mg/dL (<105)
[2021-08-29 08:37] LABS: Glucose GTT-Gestational 1 Hr 157 mg/dL (<190)
[2021-08-29 10:07] LABS: Glucose GTT-Gestational 2 Hr 126 mg/dL (<165)
[2021-08-29 11:18] LABS: Glucose GTT-Gestational 3 Hr 44 L (<145)
== END | disposition home or self-care (01) ==
LOC: LAB 06:54
PROVIDERS: Referring Provider Obstetrics & Gynecology; Visit Provider Obstetrics & Gynecology
DX: O99.810 Abnormal glucose complicating pregnancy (principal)
CPT/HCPCS: 36415; 82951; 82952

== ENCOUNTER → 2021-09-06 | Outpatient (CLI) | payer OTHER, SELFPAY ==
[2021-09-06 17:06] LABS: Absolute Lymphocyte Count 1.94 X10^3/uL (0.83-4.51); Absolute Neutrophil Count 9.2 X10^3/uL (2.0-7.7); Basophil# 0.02 X10^3/uL; Basophil% 0.2 % (0-1); Eosinophil# 0.13 X10^3/uL; Eosinophils% 1.1 % (0-5); Hematocrit 30.9 % (37-47); Hemoglobin 10.1 g/dL (12.0-15.0); Lymphocyte # 1.94 X10^3/ul (0.83-4.51); Mean Corp Hgb Conc 32.7 g/dL (32-36); Mean Corpuscular Hgb 29.8 pg (27.0-32.0); Mean Corpuscular Volume 91.2 fL (81-99); Mean Platelet Vol. 9.4 fl (6.2-12.0); Monocyte# 0.73 X10^3/uL; NRBC Flagged by Analyzer 0 % (0-5); Neutrophil # 9.19 X10^3/uL (2.7-7.7); Neutrophil % 75.7 % (47-70); Platelet Count 217 K/mm3 (150-450); RBC Distribution Width CV 12.6 % (11.6-14.6); RBC Distribution Width SD 41.7 fl (35.1-43.9); Red Blood Count 3.39 M/mm3 (4.2-5.4); White Blood Count 12.1 K/mm3 (4.4-11.0)
== END | disposition home or self-care (01) ==
LOC: LAB 16:46
PROVIDERS: Visit Provider Obstetrics & Gynecology
DX: Z34.90 Encounter for supervision of normal pregnancy, unspecified, unspecified trimester (principal); Z3A.25 25 weeks gestation of pregnancy
CPT/HCPCS: 36415; 85025

== ENCOUNTER → 2021-11-09 | Outpatient (CLI) | payer OTHER, SELFPAY | END | disposition home or self-care (01) | PROVIDERS: Visit Provider Obstetrics & Gynecology | DX: Z34.90 Encounter for supervision of normal pregnancy, unspecified, unspecified trimester (principal) | CPT/HCPCS: 87081 ==

== ENCOUNTER 2021-11-17 11:30 | Outpatient (CLI) | payer OTHER, SELFPAY ==
[2021-11-17 11:56] VITALS: BP 110/74; PULSE 117; O2SAT 99
[2021-11-17 11:59] VITALS: BMI 27.1
[2021-11-17 12:05] VITALS: BP 110/74; PULSE 102; TEMP 36.1; O2SAT 98
--- NOTE | 2021-11-17 12:10 | RAD_ITS ---
STUDY: X-RAY CHEST REASON FOR EXAM: Female, 30 years old. Pain in left rib region. 38 weeks . TECHNIQUE: PA and lateral views of the chest. COMPARISON: None. FINDINGS: The lungs are clear and expanded. There is no demonstrated pleural abnormality. Normal size heart. Normal mediastinum and sami. Normal visualized pulmonary arteries. Normal visualized aortic arch and descending thoracic aorta. Normal visualized thoracic spine. Normal visualized ribs, clavicles, and shoulders. There is no demonstrated abnormality of the visualized soft tissue structures of the upper abdomen. RAD/Chest PA and Lateral IMPRESSION: Normal x-ray examination of the chest. Electronically Signed: Teodoro Benton DO at 15:16 EDT ,
--- NOTE | 2021-11-17 14:47 | OB.TRI.HP_ITS ---
HPI - General HPI Narrative LORI CESAR, is a 30 y/o @ 38 weeks 1 days who presents to L&D due to rib pain and thinks that it could be a fracture. She has been coughing a lot at home and was prescribed mucinex DM last week. She has a scheduled IOL next week. No lof, vaginal bleeding, dec fm. or contractions. She denies fevers or chills. Maternal Data Information KAYLAH Calculator Estimated Delivery Date Method Current WG Current Estimate 11/30/21 Manual 38w 1d PFSH PFSH Medical History Anemia affecting Anticardiolipin antibody affecting , antepartum COVID-19 Dysmenorrhea Endometriosis determined by laparoscopy (~09/30/18) History of hysterosalpingogram Mullerian anomaly of uterus Septate uterus Wears contact lenses Wears glasses Home Medications multivitamin no.47-iron fum 27 mg-folate no.1 1 mg-dha 300 mg capsule (PNV-DHA) 1 cap PO DAILY 12/22/20 [History Last Taken 11/16/21 20:00] aspirin 81 mg tablet,delayed release 81 mg PO DAILY 06/27/21 [History Last Taken 11/16/21 20:00] heparin (porcine) 5,000 unit/mL injection syringe 5,000 unit subcut Q12H 3 weeks #42 mL 11/01/21 [Rx Last Taken 11/17/21 08:00] acetaminophen 325 mg tablet (Tylenol) 1,000 mg PO Q6H PRN Pain 11/17/21 [History Last Taken 11/17/21 08:00] cyclobenzaprine 5 mg tablet 5 mg PO TID PRN pain (scale score 4-10 #30 tabs 11/17/21 [Rx Last Taken Unknown] dextromethorphan-guaifenesin ER 60 mg-1,200 mg tab,extend release,12hr (Mucinex DM) 1 tab PO DAILY 11/17/21 [History Last Taken 11/17/21 08:00] Allergy/AdvReac Type Severity Reaction Status Date / Time No Known Allergies Allergy Verified 11/17/21 12:00 Family History Father Lymphoma Prostate cancer Grandmother Heart disease Grandfather Heart disease Surgical History Chromotubation (~09/30/18) Hx of laparoscopy (~09/30/18) Hysteroscopic Metroplastic (~09/30/18) S/P arthroscopy of right shoulder Social History Smoking Status: Never smoker alcohol intake: never substance use type: does not use caffeine: No what type of physical activity do you participate in: walking and weight training frequency: 3-4 times per week do you feel safe at home: Yes additional social history: [id number] Patient is RN History 4 Elective abortions Hx Para 1 Spontaneous abortions 3 Hx # Term Pregnancies 1 Ectopic pregnancies Hx # Pregnancies Multiple births # of living children 1 Past Pregnancies Del. Date Name GA/Weeks Outcome Route Bth Weight Infant Gen Labor Lgth Anesthesia Del Locatn Provider FOB 09/30/19 Derek 38 live - full term 10lbs 5oz Male 12 hours epidural [facility] Dr. Leonora Vu Delivery Date: 09/30/19 Last Updated by: Lesia Hinojosa Poly, macrosomia Visit Details Expected Delivery Route/Plan - 39 week IOL Labor Preferences- CB/BF classes: [] labor support person: [] labor intervention preferences: [] pain management options preferred: [] cut cord/dad catch: [] : [] PP control planned: [] discussed possible routes of delivery and associated risks: [] special requests: [] Plans Covid status: positive in past, counseled regarding risk of covid in vs vaccination and declined vaccination Flu vaccine: given Tdap vaccine: given Rhogam: na LARC form signed: declined movement and labor precautions reviewed. Problem list reviewed and updated with the most current plan of care details and appropriate orders placed. Relevant counseling for the gestational age provided. Continue routine care and follow up unless otherwise noted in visit notes/problem list details OB Flowsheet Initial Weight: 149 lb Date -?-?-?-?-?-?-?-?-?-?-?-?- EGA Weight BP Urine Prot -?-?-?-?-?-?-?-?-?-?-?-?- Glucose FHR FuHt Pres Dilation -?-?-?-?-?-?-?-?-?-?-?-?- Effaced St Visit Note 05/29/21 -?-?--?-?-?-?-?-?-?-?-?-?- 13w 4d 149 lb (+0 oz) 124/62 -?-?-?-?-?-?-?-?-?-?-?-?- 160 -?-?-?-?-?-?-?-?-?-?-?-?- SM- no vb crampi ng [facility] 06/27/21 -?-?-?-?-?-?-?-?-?-?-?-?- 17w 5d 155 lb 6 oz (+6 lb 6 oz) 110/70 Negative -?-?-?-?-?-?-?-?-?-?-?-?- Negative 150 -?-?-?-?-?-?-?-?-?-?-?-?- JV- refill ta [place]ward in [place] setting up anatomy ultrasound. pt is switching insurance from [employer] to [employer] and wants to wait until that is in full effect before gets scan. 07/24/21 -?-?-?-?-?-?-?-?-?-?-?-?- 21w 4d 161 lb 6 oz (+12 lb 6 oz) 100/66 Negative -?-?-?-?-?-?-?-?-?-?-?-?- Negative 150 -?-?-?-?-?-?-?-?-?-?-?-?- Sm- no vb lof go od fm no regular ctx 08/23/21 -?-?-?-?-?-?-?-?-?-?-?-?- 25w 6d 168 lb 4 oz (+19 lb 4 oz) 110/78 Negative -?-?-?-?-?-?-?-?-?-?-?-?- Negative 155 29 -?-?-?-?-?-?-?-?-?-?-?-?- JV- no lof, cram ping, bleeding,failed 1 hr gct 09/06/21 -?-?-?-?-?-?-?-?-?-?-?-?- 27w 6d 172 lb (+23 lb) 110/76 -?-?-?-?-?-?-?-?-?-?-?-?- 147 28 -?-?-?-?-?-?-?-?-?-?-?-?- JV- no lof, vagi nal bleeding, or cramping. normal 3 hr. needs cbc 09/21/21 -?-?-?-?-?-?-?-?-?-?-?-?- 30w 0d 179 lb (+30 lb) 122/74 Negative -?-?-?-?-?-?-?-?-?-?-?-?- Negative 135 30 -?-?-?-?-?-?-?-?-?-?-?-?- SM- no vb lof go od fm no regular ctx 10/03/21 -?-?-?-?-?-?-?-?-?-?-?-?- 31w 5d 177 lb 4 oz (+28 lb 4 oz) 100/68 Negative -?-?-?-?-?-?-?-?-?-?-?-?- Negative 150 -?-?-?-?-?-?-?-?-?-?-?-?- JV- no lof ,vagi nal bleeding ,or dec fm. NST reactive today. 10/08/21 -?-?-?-?-?-?-?-?-?-?-?-?- 32w 3d 178 lb (+29 lb) 124/74 Negative -?-?-?-?-?-?-?-?-?-?-?-?- Negative 150 -?-?-?-?-?-?-?-?-?-?-?-?- -NST only reac tive 10/17/21 -?-?-?-?-?-?-?-?-?-?-?-?- 33w 5d 180 lb 6 oz (+31 lb 6 oz) 113/74 Negative -?-?-?-?-?-?-?-?-?-?-?-?- Negative 130 -?-?-?-?-?-?-?-?--?-?-?-?- JV- NST reactive , no lof, vaginal bleeding ,or dec fm. no complaints today. plan for post lovenox as unable to get info back from [facility]. better to err on side of caution 10/22/21 -?-?-?-?-?-?-?-?-?-?-?-?- 34w 3d 183 lb 2 oz (+34 lb 2 oz) 118/77 Negative -?-?-?-?-?-?-?-?-?-?-?-?- Negative 140 -?-?-?-?-?-?-?-?-?-?-?-?- MH-NST only reac tive 11/09/21 -?-?-?-?-?-?-?-?-?-?-?-?- 37w 0d 186 lb (+37 lb) Negative -?-?-?-?-?-?-?-?-?-?-?-?- Negative 140 -?-?-?-?-?-?-?-?-?-?-?-?- SM- no vb lof go od fm no regular ctx SM- no vb lof good fm no reg ular ctx gbs done 11/15/21 -?-?-?-?-?-?-?-?-?-?-?-?- 37w 6d 185 lb 6 oz (+36 lb 6 oz) 111/73 Negative -?-?-?-?-?-?-?-?-?-?-?-?- Negative 140 1 -?-?-?-?-?-?-?-?-?-?-?-?- 0 -4 SM- no vb lof good fm no regular ctx 11/17/21 -?-?-?-?-?-?-?-?-?-?-?-?- 38w 1d 184 lb (+35 lb) 110/74 110/74 -?-?-?-?-?-?-?-?-?-?-?-?- -?-?-?-?-?-?-?-?-?-?-?-?- ROS Constitutional Constitutional: Reports systems reviewed and no addt'l complaints, except as documented Gastrointestinal Gastrointestinal: Denies bloating, constipation, cramping, diarrhea, nausea or vomiting Genitourinary Genitourinary: Reports other Details: Denies vaginal odor, vaginal bleeding, or vaginal discharge ; Denies difficulty urinating or flank pain Physical Exam HEENT normocephalic Resp normal respiratory effort and normal air movement no CVA tenderness Extremity normal to inspection General Extremity: edema bilateral (trace ) NST FHR Rate Baby A Baseline: 140 Variability:: Moderate Accelerations:: 15 x 15 Decelerations:: None NST Reactive:: Yes FHR Category:: Category I Assessment & Plan (1) Anemia affecting : COMMENT: CBC in 4 weeks (2) Abnormal glucose affecting : COMMENT: normal 3 hr (3) Hx of macrosomia in infant in prior , currently : COMMENT: hga1c at 14 weeks (4) Supervision of high-risk : COMMENT: PRR KAYLAH 11/30/21 surprise PC Derek Horace (5) Antiphospholipid antibody syndrome: COMMENT: lovenox and asa in . recommend weekly nst after 32, growth US q 4 weeks. 5/9 nl growth, 6/6 nl growth, 7/5 growth EFW 3871, deliver at 39, lovenox for 6 weeks (6) : QUALIFIERS: Weeks of gestation: 37 weeks Qualified Code(s): Z3A.37 - 37 weeks gestation of COMMENT: GBS neg. Release from [facility] at 13w, saw Dr. Richardson, Sema4 genetics nl, carrier nl, nl anatomy. PLAN: Plan cxr is pending but covid test was negative plan to dc to home with flexeril and ice for now. if negative for fracture will recommend ice. continue cough suppressant nst reactive Charges/Coding Multi Select Codes Visit Charges Office Visit/Consults: 08817 OV L3 Est Urinary/Genital Urinary/Genital CPT Codes: 47298-24 non-stress test Interp
[2021-11-17] MEDS: cycloBENZAPRine HCl 5 MG TABLET PO (15:16)
== END 2021-11-17 15:23 | disposition home or self-care (01) ==
LOC: WPOUT 11:37 → WP 11:39
PROVIDERS: Referring Provider Obstetrics & Gynecology; Visit Provider Obstetrics & Gynecology
DX: O99.113 Other diseases of the blood and blood-forming organs and certain disorders involving the immune mechanism complicating pregnancy, third trimester (principal); D68.61 Antiphospholipid syndrome; O99.013 Anemia complicating pregnancy, third trimester; Z20.822 Contact with and (suspected) exposure to COVID-19; R07.81 Pleurodynia; Z79.82 Long term (current) use of aspirin; Z79.01 Long term (current) use of anticoagulants; Z3A.37 37 weeks gestation of pregnancy
CPT/HCPCS: 59025; 59050; 71046; 87426; 99218; G0378

== ENCOUNTER 2021-11-24 07:00 | Inpatient (IN) | payer OTHER, SELFPAY ==
[2021-11-24] VITALS (45 sets, daily range): BP systolic 95–139; BP diastolic 54–83; PULSE 80–127; RESP 16; TEMP 36.7–37.8; O2SAT 81–100; BMI 27.5
[2021-11-24] MEDS: Lactated Ringers 1,000 ML 50 ML IV (07:40)
[2021-11-24 07:57] LABS: Absolute Lymphocyte Count 1.33 X10^3/uL (0.83-4.51); Absolute Neutrophil Count 7.7 X10^3/uL (2.0-7.7); Basophil# 0.02 X10^3/uL; Basophil% 0.2 % (0-1); Eosinophil# 0.06 X10^3/uL; Eosinophils% 0.6 % (0-5); Hemoglobin 12.2 g/dL (12.0-15.0); Lymphocyte # 1.33 X10^3/ul (0.83-4.51); Lymphocyte % 13.6 % (19-41); Mean Corpuscular Hgb 31.2 pg (27.0-32.0); Mean Corpuscular Volume 94.6 fL (81-99); Mean Platelet Vol. 9.9 fl (6.2-12.0); Monocyte# 0.54 X10^3/uL; Monocyte% 5.5 % (0-10); NRBC Flagged by Analyzer 0 % (0-5); Neutrophil # 7.71 X10^3/uL (2.7-7.7); Neutrophil % 78.9 % (47-70); Platelet Count 211 K/mm3 (150-450); RBC Distribution Width CV 15.1 % (11.6-14.6); RBC Distribution Width SD 52.4 fl (35.1-43.9); Red Blood Count 3.91 M/mm3 (4.2-5.4); White Blood Count 9.8 K/mm3 (4.4-11.0)
[2021-11-24] MEDS: 0.9% Normal Saline Single 100 ML IV.SOLN. INTRA-UTER (08:06)
--- NOTE | 2021-11-24 08:14 | HP.PCM.OB_ITS ---
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 she also has macrosomia suspected 10 lbs EFW now currently at based on 36 weeks growth US. she denies any vb lof admits good fm. Maternal Data Information KAYLAH Calculator Estimated Delivery Date Method Current WG Current Estimate 11/30/21 Manual 39w 1d PFSH PFSH Medical History Anemia affecting Anticardiolipin antibody affecting , antepartum COVID-19 Dysmenorrhea Endometriosis determined by laparoscopy (~09/30/18) History of hysterosalpingogram Mullerian anomaly of uterus Septate uterus Wears contact lenses Wears glasses Home Medications multivitamin no.47-iron fum 27 mg-folate no.1 1 mg-dha 300 mg capsule (PNV-DHA) 1 cap PO DAILY 12/22/20 [History Last Taken 11/16/21 20:00] aspirin 81 mg tablet,delayed release 81 mg PO DAILY 06/27/21 [History Last Taken 11/16/21 20:00] heparin (porcine) 5,000 unit/mL injection syringe 5,000 unit subcut Q12H 3 weeks #42 mL 11/01/21 [Rx Last Taken 11/17/21 08:00] acetaminophen 325 mg tablet (Tylenol) 1,000 mg PO Q6H PRN Pain 11/17/21 [History Last Taken 11/17/21 08:00] cyclobenzaprine 5 mg tablet 5 mg PO TID PRN pain (scale score 4-10 #30 tabs 11/17/21 [Rx Last Taken Unknown] dextromethorphan-guaifenesin ER 60 mg-1,200 mg tab,extend release,12hr (Mucinex DM) 1 tab PO DAILY 11/17/21 [History Last Taken 11/17/21 08:00] Allergy/AdvReac Type Severity Reaction Status Date / Time No Known Allergies Allergy Verified 11/23/21 09:03 Family History Father Lymphoma Prostate cancer Grandmother Heart disease Grandfather Heart disease Surgical History Chromotubation (~09/30/18) Hx of laparoscopy (~09/30/18) Hysteroscopic Metroplastic (~09/30/18) S/P arthroscopy of right shoulder Social History Smoking Status: Former smoker alcohol intake: never substance use type: does not use caffeine: No what type of physical activity do you participate in: walking and weight training frequency: 3-4 times per week do you feel safe at home: Yes additional social history: [employer]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 Date Name GA/Weeks Outcome Route Bth Weight Gen Labor Lgth Anesthesia Del Locatn Provider FOB 09/30/19 Derek 38 live - full term 10lbs 5oz Male 12 hours epidural [facility] Dr. Leonora Vu Delivery Date: 09/30/19 Last Updated by: Lesia Hinojosa Poly, macrosomia Visit Details Expected Delivery Route/Plan - 39 week IOL Labor Preferences- CB/BF classes: [] labor support person: [] labor intervention preferences: [] pain management options preferred: [] cut cord/dad catch: [] : [] PP control planned: [] discussed possible routes of delivery and associated risks: [] special requests: [] Plans Covid status: positive in past, counseled regarding risk of covid in vs vaccination and declined vaccination Flu vaccine: given Tdap vaccine: given Rhogam: na LARC form signed: declined movement and labor precautions reviewed. Problem list reviewed and updated with the most current plan of care details and appropriate orders placed. Relevant counseling for the gestational age provided. Continue routine care and follow up unless otherwise noted in visit notes/problem list details OB Flowsheet Initial Weight: 149 lb Date -?-?-?-?-?-?-?-?-?-?-?-?- EGA Weight BP Urine Prot -?-?-?-?-?-?-?-?-?-?-?-?- Glucose FHR FuHt Pres Dilation -?-?-?-?-?-?-?-?-?-?-?-?- Effaced St Visit Note 05/29/21 -?-?-?-?-?-?-?-?-?-?-?-?- 13w 4d 149 lb (+0 oz) 124/62 -?-?-?-?-?-?-?-?-?-?-?-?- 160 -?-?-?-?-?-?-?-?-?-?-?-?- SM- no vb crampi ng GUNJAN RGI 06/27/21 -?-?-?-?-?-?-?-?-?-?-?-?- 17w 5d 155 lb 6 oz (+6 lb 6 oz) 110/70 Negative -?-?-?-?-?-?-?-?-?-?-?-?- Negative 150 -?-?-?-?-?-?-?-?-?-?-?-?- JV- [facility] setting up anatomy ultrasound. pt is switching insurance from [employer] to [email or web address] and wants to wait until that is in ful l effect before gets scan. 07/24/21 -?-?-?-?-?-?-?-?-?-?-?-?- 21w 4d 161 lb 6 oz (+12 lb 6 oz) 100/66 Negative -?-?-?-?-?-?-?-?-?-?-?-?- Negative 150 -?-?-?-?-?-?-?-?-?-?-?-?- Sm- no vb lof go od fm no regular ctx 08/23/21 -?-?-?-?-?-?-?-?-?-?-?-?- 25w 6d 168 lb 4 oz (+19 lb 4 oz) 110/78 Negative -?-?-?-?-?-?-?-?-?-?-?-?- Negative 155 29 -?-?-?-?-?-?-?-?-?-?-?-?- JV- no lof, cram ping, bleeding,failed 1 hr gct 09/06/21 -?-?-?-?-?-?-?-?-?-?-?-?- 27w 6d 172 lb (+23 lb) 110/76 -?-?-?-?-?-?-?-?-?-?-?-?- 147 28 -?-?-?-?-?-?-?-?-?-?-?-?- JV- no lof, vagi nal bleeding, or cramping. normal 3 hr. needs cbc 09/21/21 -?-?-?-?-?-?-?-?-?-?-?-?- 30w 0d 179 lb (+30 lb) 122/74 Negative -?-?-?-?-?-?-?-?-?-?-?-?- Negative 135 30 -?-?-?-?-?-?-?-?-?-?-?-?- SM- no vb lof go od fm no regular ctx 10/03/21 -?-?-?-?-?-?-?-?-?-?-?-?- 31w 5d 177 lb 4 oz (+28 lb 4 oz) 100/68 Negative -?-?-?-?-?-?-?-?-?-?-?-?- Negative 150 -?-?-?--?-?-?-?-?-?-?-?-?- JV- no lof ,vagi nal bleeding ,or dec fm. NST reactive today. 10/08/21 -?-?-?-?-?-?-?-?-?-?-?-?- 32w 3d 178 lb (+29 lb) 124/74 Negative -?-?-?-?-?-?-?-?-?-?-?-?- Negative 150 -?-?-?-?-?-?-?-?-?-?-?-?- MH-NST only reac tive 10/17/21 -?-?-?-?-?-?-?-?-?-?-?-?- 33w 5d 180 lb 6 oz (+31 lb 6 oz) 113/74 Negative -?-?-?-?-?-?-?-?-?-?-?-?- Negative 130 -?-?-?-?-?-?-?-?-?-?-?-?- JV- NST reactive , no lof, vaginal bleeding ,or dec fm. no complaints today. plan for post lovenox as unable to get info back from [facility]. better to err on side of caution 10/22/21 -?-?-?-?-?-?-?-?-?-?-?-?- 34w 3d 183 lb 2 oz (+34 lb 2 oz) 118/77 Negative -?-?-?-?-?-?-?-?-?-?-?-?- Negative 140 -?-?-?-?-?-?-?--?-?-?-?-?- MH-NST only reac tive 11/09/21 -?-?-?-?-?-?-?-?-?-?-?-?- 37w 0d 186 lb (+37 lb) Negative -?-?-?-?-?-?-?-?-?-?-?-?- Negative 140 -?-?-?-?-?-?-?-?-?-?-?-?- SM- no vb lof go od fm no regular ctx SM- no vb lof good fm no reg ular ctx gbs done 11/15/21 -?-?-?-?-?-?-?-?--?-?-?-?- 37w 6d 185 lb 6 oz (+36 lb 6 oz) 111/73 Negative -?-?-?-?-?-?-?-?-?-?-?-?- Negative 140 1 -?-?-?-?-?-?-?-?-?-?-?-?- 0 -4 SM- no vb lof good fm no regular ctx 11/24/21 -?-?-?-?-?-?-?-?-?-?-?-?- 39w 1d 186 lb 8.177 oz (+37 lb 8.177 oz) -?--?-?-?-?-?-?-?-?-?-?-?- -?-?-?-?-?-?-?-?-?-?-?-?- NST FHR Rate Baby A Baseline: 130 Variability:: Moderate Accelerations:: 15 x 15 Decelerations:: Variable (isolated decel upon initial presentation) NST Reactive:: Yes FHR Category:: Category I Uterine Activity:: irregular ROS Constitutional Constitutional: Reports systems reviewed and no addt'l complaints, except as documented Eyes Eyes: Denies change in vision ENT HEENT: Reports systems reviewed and no addt'l complaints, except as documented; Denies headache(s) Cardiovascular Cardiovascular: Reports systems reviewed and no addt'l complaints, except as documented; Denies chest pain or dyspnea Respiratory/Chest Respiratory/Chest: Reports systems reviewed and no addt'l complaints, except as documented Gastrointestinal Gastrointestinal: Reports systems reviewed and no addt'l complaints, except as documented; Denies abdominal pain Genitourinary Genitourinary: Reports systems reviewed and no addt'l complaints, except as documented, contractions Details: present (irregular) and movement Details: present; Denies dysuria or genital lesions Musculoskeletal Musculoskeletal: Reports systems reviewed and no addt'l complaints, except as documented Neurologic Neurologic: Reports systems reviewed and no addt'l complaints, except as documented Endocrine Endocrinology: Reports systems reviewed and no addt'l complaints, except as documented Vital Signs Vital Signs Vital Signs: Weight Weight: 186 lb 8.177 oz Body Mass Index (BMI) 27.5 Physical Exam Const alert, oriented x3, no apparent distress and healthy appearing HEENT normocephalic and moist oral mucous membranes Head and Scalp: atraumatic Neck full ROM, no lymphadenopathy, supple and thyroid normal General: trachea midline Lymph Lymphatic: no lymphadenopathy noted Chest inspection of chest normal Resp normal respiratory effort Cardio regular rate GI normal to inspection, nondistended, normoactive bowel sounds, soft to palpation and non-tender Inspection: gravid external exam normal Manual OB Exam: estimated gestational size appropriate, presentation cephalic, dilated, effaced and station Extremity normal to inspection General Extremity: Negative for edema Skin no rashes or lesions noted Neuro no focal motor deficits and deep tendon reflexes 2+ bilaterally Motor Exam: strength 5/5 throughout and clonus absent Psych mental status grossly normal Labs Labs Labs: Blood Type O POSITIVE Antibody Screen NEGATIVE Hct 37.0 % (37-47) Hgb 12.2 g/dL (12.0-15.0) Pap Smear Negative Hep Bs Antigen Pending Glucose 1 Hr 50 gm 145 mg/dL (70-140) H Rhogam given: Yes Assessment & Plan (1) Macrosomia: COMMENT: EFW 10lbs currently based on 36 week growth US, previous 10lb 5 ounce delivery without complication (2) Anemia affecting : COMMENT: CBC in 4 weeks (3) Abnormal glucose affecting : COMMENT: normal 3 hr (4) Hx of macrosomia in infant in prior , currently : COMMENT: hga1c at 14 weeks (5) Supervision of high-risk : COMMENT: PRR KAYLAH 11/30/21 surprise PC Derek Horace (6) Antiphospholipid antibody syndrome: COMMENT: lovenox and asa in . recommend weekly nst after 32, growth US q 4 weeks. 5/9 nl growth, 6/6 nl growth, 7/ growth EFW 3871, deliver at 39, lovenox for 6 weeks (7) : QUALIFIERS: Weeks of gestation: 39 weeks Qualified Code(s): Z3A.39 - 39 weeks gestation of COMMENT: GBS neg. Release from RGI at 13w, saw Dr. Richardson, [facility] genetics nl, carrier nl, nl anatomy. (8) Encounter for induction of labor: COMMENT: plan pitocin and fb IOL, Epi PRN, AROM when able PLAN: Plan Patient presents IOL, plan management for with pit fb. Pain management: plans epidural. GBS negative. Management of any complications: apl- hold lovenox until after delivery and then restart I have reviewed the [facility] and made any clinically relevant updates.
[2021-11-24] MEDS: Oxytocin 30 units/NS 500 ml 30 UNITS/500 ML IV.SOLN IV (08:22)
[2021-11-24 08:39] LABS: Hepatitis B Surface Antigen Non-Reactive (Nonreactive)
[2021-11-24] MEDS: LACTATED RINGERS 500 ML 999 ML IV (11:41)
[2021-11-24] MEDS: fentaNYL-bupivacaine (epidural) 100 ML BAG EPIDURAL (13:43)
[2021-11-24] MEDS: Lactated Ringers 1,000 ML 200 ML IV (14:45)
--- NOTE | 2021-11-24 17:10 | OP.PCM_ITS ---
Assessment & Plan (1) : QUALIFIERS: Weeks of gestation: 39 weeks Qualified Code(s): Z3A.39 - 39 weeks gestation of COMMENT: GBS neg. Release from RGI at 13w, saw Dr. Richardson, [facility] genetics nl, carrier nl, nl anatomy. (2) Antiphospholipid antibody syndrome: COMMENT: lovenox and asa in . recommend weekly nst after 32, growth US q 4 weeks. 5/9 nl growth, 6/6 nl growth, 7/5 growth EFW 3871, deliver at 39, lovenox for 6 weeks (3) Supervision of high-risk : COMMENT: PRR KAYLAH 11/30/21 surprise PC Derek Horace (4) Hx of macrosomia in infant in prior , currently : COMMENT: hga1c at 14 weeks (5) Abnormal glucose affecting : COMMENT: normal 3 hr (6) Macrosomia: COMMENT: EFW 10lbs currently based on 36 week growth US, previous 10lb 5 ounce delivery without complication (7) Encounter for induction of labor: COMMENT: plan pitocin and fb IOL, Epi PRN, AROM when able (8) Anemia affecting : COMMENT: CBC in 4 weeks (9) Vaginal delivery: COMMENT: IOL APL SM Maternal Data Information KAYLAH Calculator Estimated Delivery Date Method Current WG Current Estimate 11/30/21 Manual 39w 2d Vaginal Delivery Operative Information Date of Procedure: 11/24/21 Pre-Operative Diagnosis: iol APL Post-Operative Diagnosis: same Surgery / Procedure Performed: Spontaneous Vaginal Delivery Type of Anesthesia: Epidural Special Medications: none Estimated Blood Loss: 300 Fluids Replaced: crystalloid Findings Description of Procedure: Patient began pushing and delivered the head in the ROSAMARIA presentation. The head was delivered atraumatically . The anterior and posterior shoulders delivered without complication followed by the rest of the and the was placed on the maternal abdomen. Delayed cord clamping was employed for approximately 60 seconds. Cord was clamped and cut and gentle traction was applied to the cord and the placenta delivered spontaneously immediately following it was noted to be intact with three-vessel cord. The perineum and vagina were inspected and noted to have a first degree laceration repaired in the usual fashion with 3-0 rapide and an additional stitch superior to the urethra on the left labia for hemostasis. EBL was 300. Patient and tolerated delivery well. Presentation: ROSAMARIA Amniotic Membrane Rupture Type: Artificial Amniotic Fluid Description: Clear Placental Delivery Description: Spontaneous Placenta Disposition: [facility] Cord Vessel Description: 3 Vessels Cord Entanglement: None Infant A Gender: Female Delayed Cord Clamping: Yes Post Vaginal Delivery Medications Given After Delivery: IV Pitocin Episiotomy Description: None Laceration: Perineal Extension/lac and 1st degree Complication Complications: None Procedures Urinary/Genital [id number]: [id number] Vaginal Delivery [facility]
--- NOTE | 2021-11-24 17:17 | DCINST_ITS ---
Discharge Instructions Diet Discharge Diet: No restrictions Activity Discharge Activity: Return to Normal Activity, May Drive, May Shower and May Take a Tub Bath (in 4 weeks) May resume sexual activity in: 6-8 weeks (after seen by OB provider) Weight Bearing Status: Full weight bearing Lifting Restrictions: none Dressing / Incision Call your doctor if you observe: Fever of 101 or Higher, Inability to urinate, Using more than 1 pad per hour (for more than 2 hours in a row or more), Shortness of breath, Dizziness, Chest pain and - (headache not controlled with tylenol, change in vision) Follow Up Care When: in 6 weeks for visit, call the office to make the appointment. If you had elevated blood pressures call the office to be seen within 1 week. Test Results: Test results from this visit will be discussed in further detail at your follow- up appointment, if applicable. Discharge Plan Admission Admit Date/Time: 11/24/21 07:00 Attending Provider: Cher Aly Primary Care Provider: Care Physician,Katlin Primary Discharge Orders/Prescriptions Prescriptions: New enoxaparin [Lovenox] 40 mg/0.4 mL syringe 40 mg SQ DAILY 40 Days Qty: 20 1RF Rx Instructions: 6 weeks Continued PNV-DHA 27 mg iron-1 mg -300 mg capsule 1 cap PO DAILY aspirin 81 mg tablet,delayed release (DR/EC) 81 mg PO DAILY cyclobenzaprine 5 mg tablet 5 mg PO TID PRN (Reason: pain (scale score 4-10) Qty: 30 0RF heparin (porcine) 5,000 unit/mL syringe 5,000 unit subcut Q12H Referrals / Follow Up: Care Physician,No Primary [Primary Care Provider] - Disposition Disposition (needs filled in before D/C Order can be placed): Home, Self Care
[2021-11-24] MEDS: Oxytocin 30 units/NS 500 ml 30 UNITS/500 ML IV.SOLN 334 UNITS IV (17:42)
[2021-11-24] MEDS: Naproxen 500 MG Tablet PO (19:42)
[2021-11-24] MEDS: 0.9% Saline Lock 10 ML Syringe IV (22:31)
[2021-11-24] MEDS: Acetaminophen 500 MG Tablet 1000 MG PO (22:31)
[2021-11-25] VITALS (7 sets, daily range): BP systolic 109–122; BP diastolic 64–79; PULSE 62–89; RESP 16–18; TEMP 36.3–36.6; O2SAT 97–98
[2021-11-25] MEDS: Naproxen 500 MG Tablet PO ×2 (04:08→12:48)
--- NOTE | 2021-11-25 04:39 | NURSING ---
parents are cpr certified
[2021-11-25] MEDS: Acetaminophen 500 MG Tablet 1000 MG PO ×2 (07:31→15:20)
[2021-11-25] MEDS: Enoxaparin 40 MG/0.4 ML Syringe SC (07:31)
--- NOTE | 2021-11-25 09:48 | PCM.PN.OB ---
Subjective Subjective Patient doing well without complaints. Tolerating PO. Ambulating and voiding without difficulty. feeding well. Denies chest pain, shortness of breath, calf pain/swelling, fevers, chills, lightheadedness. Objective Data Objective Data Vital Signs: Vital Signs Temp Pulse Resp BP Pulse Ox O2 Del Method 97.8 F 89 16 122/79 H 98 Room Air 11/25/21 08:30 11/25/21 08:30 11/25/21 08:30 11/25/21 08:30 11/25/21 08:30 11/25/21 08:30 Oxygen Delivery Method Room Air Weight: 186 lb 8.177 oz Body Mass Index (BMI) 27.5 Intake & Output: Intake and Output for Last 24 Hours 11/23/21 11/24/21 11/25/21 23:59 23:59 23:59 Intake Total 4068.02 / 4068.02 Output Total 2350 / 2350 300 / 300 Balance 1718.02 / 1718.02 -300 / -300 Lab / Micro Data Result Diagrams: 11/24/21 07:40 ROS Constitutional Constitutional: Reports systems reviewed and no addt'l complaints, except as documented Cardiovascular Cardiovascular: Reports systems reviewed and no addt'l complaints, except as documented Respiratory/Chest Respiratory/Chest: Reports systems reviewed and no addt'l complaints, except as documented Gastrointestinal Gastrointestinal: Reports systems reviewed and no addt'l complaints, except as documented Physical Exam Const alert, oriented x3 and no apparent distress HEENT Head and Scalp: atraumatic Resp normal respiratory effort GI soft to palpation and non-tender Bimanual Exam - Vag & Uterus: uterus non-tender Uterus Palpation: uterus fundus firm (below Umbilicus) Assessment & Plan (1) Antiphospholipid antibody syndrome: COMMENT: lovenox and asa in . recommend weekly nst after 32, growth US q 4 weeks. 5/9 nl growth, 6/6 nl growth, 7/5 growth EFW 3871, deliver at 39, lovenox for 6 weeks (2) Vaginal delivery: COMMENT: IOL APL SM PLAN: Plan s/p PPD # 1 1. routine post delivery care 2. breast feeding- support given 3. rh positive 4. rubella immune
== END 2021-11-25 18:57 | disposition home or self-care (01) | DRG 806 ==
PROVIDERS: Obstetrics & Gynecology; Admitting Provider Obstetrics & Gynecology; Visit Provider Obstetrics & Gynecology
DX: O99.12 Other diseases of the blood and blood-forming organs and certain disorders involving the immune mechanism complicating childbirth (principal); Z37.0 Single live birth; D68.61 Antiphospholipid syndrome; D64.9 Anemia, unspecified; O70.0 First degree perineal laceration during delivery; O99.02 Anemia complicating childbirth; Z79.82 Long term (current) use of aspirin; Z79.01 Long term (current) use of anticoagulants; Z3A.39 39 weeks gestation of pregnancy; Z86.16 Personal history of COVID-19; Z87.891 Personal history of nicotine dependence
CPT/HCPCS: 59025; 59050; 85025; 86850; 86900; 86901; 87340; 99218; J7120; A4216; G0378

== ENCOUNTER → 2021-12-31 | Outpatient (CLI) | payer OTHER, SELFPAY ==
[2022-01-06 11:09] LABS: HPV APTIMA, High Risk Negative (Negative)
== END | disposition home or self-care (01) ==
LOC: LABSPEC 16:43
PROVIDERS: Referring Provider Obstetrics & Gynecology; Visit Provider Obstetrics & Gynecology
DX: Z12.4 Encounter for screening for malignant neoplasm of cervix (principal)
CPT/HCPCS: 87624; 88175; G0145

== ENCOUNTER → 2023-04-25 | Outpatient (CLI) | payer OTHER, SELFPAY ==
[2023-04-29 21:06] LABS: Chlamydia By Nucleic Acid AMP Negative (Negative); Gonococcus By Nucleic Acid AMP Negative (Negative)
== END | disposition home or self-care (01) ==
LOC: LABSPEC 16:51
PROVIDERS: Referring Provider Obstetrics & Gynecology; Visit Provider Obstetrics & Gynecology
DX: Z34.90 Encounter for supervision of normal pregnancy, unspecified, unspecified trimester (principal); Z3A.00 Weeks of gestation of pregnancy not specified
CPT/HCPCS: 87086; 87088; 87491; 87591

== ENCOUNTER → 2023-06-23 | Outpatient (CLI) | payer OTHER, SELFPAY ==
[2023-06-23 13:55] LABS: Absolute Lymphocyte Count 1.95 X10^3/uL (0.83-4.51); Absolute Neutrophil Count 7.8 X10^3/uL (2.0-7.7); Basophil# 0.03 X10^3/uL; Basophil% 0.3 % (0-1); Eosinophil# 0.09 X10^3/uL; Eosinophils% 0.9 % (0-5); Hematocrit 35.6 % (37-47); Hemoglobin 11.7 g/dL (12.0-15.0); Lymphocyte # 1.95 X10^3/ul (0.83-4.51); Lymphocyte % 18.7 % (19-41); Mean Corp Hgb Conc 32.9 g/dL (32-36); Mean Corpuscular Hgb 29.8 pg (27.0-32.0); Mean Corpuscular Volume 90.6 fL (81-99); Mean Platelet Vol. 9.5 fl (6.2-12.0); Monocyte# 0.48 X10^3/uL; Monocyte% 4.6 % (0-10); NRBC Flagged by Analyzer 0 % (0-5); Neutrophil # 7.84 X10^3/uL (2.7-7.7); Neutrophil % 75.2 % (47-70); Platelet Count 208 K/mm3 (150-450); RBC Distribution Width CV 13.9 % (11.6-14.6); RBC Distribution Width SD 45.3 fl (35.1-43.9); Red Blood Count 3.93 M/mm3 (4.2-5.4); White Blood Count 10.4 K/mm3 (4.4-11.0)
[2023-06-23 15:06] LABS: HIV - WCH Non-Reactive (Nonreactive); Hepatitis B Surface Antigen Non-Reactive (Nonreactive); Hepatitis C Antibody Non-Reactive (Nonreactive); Rubella IgG Reactive (Nonreactive); Syphilis Antibodies Non-reactive
--- OUTSIDE RECORDS SUMMARY | 2023-06-23 15:31 | XMS RPT_ITS | CCD ---
Author Name Unknown Address [address] [place] [address] Organization [facility] Care Team Providers Care Advertisement Distributor Name Role Phone TOWER, DAVID E Unavailable Unavailable TOWER, DAVID E Unavailable Unavailable TOWER, DAVID E Unavailable Unavailable TOWER, DAVID E Unavailable Unavailable Problems Problem Classification Problem Date Documented Da te Episodic/Chronic Unclassified (1 source) Unknown / UNK(Unknown) Onset: 08-06-2017 Results Test Name Value Interpretation Reference Range Facil ity Encounters Encounter Date Encounter Type Care Provider Facility Start: 07-16-2018 Patient encounter procedure Facility:[facility] Start: 11-12-2017 End: 11-13-2017 Patient encounter DAVID ROTHMANSB [facility] Start: 08-06-2017 Patient encounter DAVID ROTHMANSB [facility] Payers Date Payer Category Payer Unknown [id number] Unknown [id number] Summary Purpose Family History No Family History Records FoundNo Family History Records FoundNo Family History Records FoundNo Family History Records FoundNo Family History Records FoundNo Family History Records Found Advance Directives No Advanced Directives Records FoundNo Advanced Directives Records FoundNo Advanced Directives Records FoundNo Advanced Directives Records FoundNo Advanced Directives Records FoundNo Advanced Directives Records Found Additional Source Comments INFORMATION SOURCE (unrecogn ized section and content) DATE CREATED AUTHOR AUTHOR'S ORGANIZ ATION 11/16/2017 [facility] DATE CREATED AUTHOR AUTHOR'S ORGANIZ ATION 04/19/2018 [facility] DATE CREATED AUTHOR AUTHOR'S ORGANIZ ATION 07/17/2018 [facility] DATE CREATED AUTHOR AUTHOR'S ORGANIZ ATION 10/11/2018 [facility] DATE CREATED AUTHOR AUTHOR'S ORGANIZ ATION 09/14/2019 [facility] FOR RECORDS PERTAINING TO PATIENTS WHO ARE OR HAVE BEEN ENROLLED IN A CHEMICAL DEPENDENCY/SUBSTANCEABUSE PROGRAM, SOME INFORMATION MAY BE OMITTED. This clinical summary was aggregated from multiple sources. Caution should be exercised in using it in the provision of clinical care. This summary normalizes information from multiple sources, and as a consequence, information in this document may materially change the coding, format and clinical context of patient data. In addition, data may be omitted in some cases. CLINICAL DECISIONS SHOULD BE BASED ON THE PRIMARY CLINICAL RECORDS. [facility] [employer] provides no warranty or guarantee of the accuracy or completeness of information in this document.
== END | disposition home or self-care (01) ==
PROVIDERS: Referring Provider Obstetrics & Gynecology; Visit Provider Obstetrics & Gynecology
DX: Z34.90 Encounter for supervision of normal pregnancy, unspecified, unspecified trimester (principal); Z3A.00 Weeks of gestation of pregnancy not specified
CPT/HCPCS: 36415; 85025; 86703; 86762; 86780; 86803; 86850; 86900; 86901; 87340

== ENCOUNTER → 2023-08-15 | Outpatient (CLI) | payer OTHER, SELFPAY ==
[2023-08-15 10:44] LABS: Absolute Lymphocyte Count 1.66 X10^3/uL (0.83-4.51); Absolute Neutrophil Count 7.3 X10^3/uL (2.0-7.7); Basophil# 0.03 X10^3/uL; Basophil% 0.3 % (0-1); Hemoglobin 11.2 g/dL (12.0-15.0); Lymphocyte # 1.66 X10^3/ul (0.83-4.51); Lymphocyte % 17.3 % (19-41); Mean Corp Hgb Conc 32.9 g/dL (32-36); Mean Corpuscular Hgb 30.5 pg (27.0-32.0); Mean Corpuscular Volume 92.6 fL (81-99); Mean Platelet Vol. 9.5 fl (6.2-12.0); Monocyte# 0.49 X10^3/uL; Monocyte% 5.1 % (0-10); NRBC Flagged by Analyzer 0 % (0-5); Neutrophil # 7.25 X10^3/uL (2.7-7.7); Neutrophil % 75.6 % (47-70); Platelet Count 193 K/mm3 (150-450); RBC Distribution Width CV 12.9 % (11.6-14.6); Red Blood Count 3.67 M/mm3 (4.2-5.4); White Blood Count 9.6 K/mm3 (4.4-11.0)
[2023-08-15 11:11] LABS: Glucose Challenge Gest 1H 50g 114 mg/dL (70-140)
[2023-08-15 11:26] LABS: HIV - WCH Non-Reactive (Nonreactive); Syphilis Antibodies Non-reactive
== END | disposition home or self-care (01) ==
LOC: PAVLAB 10:16
PROVIDERS: Referring Provider Obstetrics & Gynecology; Visit Provider Obstetrics & Gynecology
DX: Z34.90 Encounter for supervision of normal pregnancy, unspecified, unspecified trimester (principal); Z3A.00 Weeks of gestation of pregnancy not specified
CPT/HCPCS: 36415; 82950; 85025; 86703; 86780

== ENCOUNTER → 2023-10-13 | Outpatient (CLI) | payer OTHER, SELFPAY ==
[2023-10-13 12:23] LABS: Absolute Lymphocyte Count 1.53 X10^3/uL (0.83-4.51); Absolute Neutrophil Count 7.5 X10^3/uL (2.0-7.7); Basophil# 0.03 X10^3/uL; Basophil% 0.3 % (0-1); Eosinophil# 0.07 X10^3/uL; Eosinophils% 0.7 % (0-5); Hematocrit 33.4 % (37-47); Hemoglobin 10.9 g/dL (12.0-15.0); Lymphocyte # 1.53 X10^3/ul (0.83-4.51); Lymphocyte % 15.6 % (19-41); Mean Corp Hgb Conc 32.6 g/dL (32-36); Mean Corpuscular Hgb 30.5 pg (27.0-32.0); Mean Corpuscular Volume 93.6 fL (81-99); Mean Platelet Vol. 10.1 fl (6.2-12.0); Monocyte# 0.61 X10^3/uL; Monocyte% 6.2 % (0-10); NRBC Flagged by Analyzer 0 % (0-5); Neutrophil # 7.49 X10^3/uL (2.7-7.7); Neutrophil % 76.5 % (47-70); Platelet Count 219 K/mm3 (150-450); RBC Distribution Width CV 13.2 % (11.6-14.6); RBC Distribution Width SD 44.6 fl (35.1-43.9); Red Blood Count 3.57 M/mm3 (4.2-5.4); White Blood Count 9.8 K/mm3 (4.4-11.0)
== END | disposition home or self-care (01) ==
LOC: LAB 10:14
PROVIDERS: Referring Provider Advanced Practice Midwife; Visit Provider Advanced Practice Midwife
DX: O09.92 Supervision of high risk pregnancy, unspecified, second trimester (principal); Z3A.00 Weeks of gestation of pregnancy not specified
CPT/HCPCS: 36415; 85025

== ENCOUNTER → 2023-11-07 | Outpatient (CLI) | payer OTHER, SELFPAY | END | disposition home or self-care (01) | PROVIDERS: Visit Provider Obstetrics & Gynecology | DX: Z34.00 Encounter for supervision of normal first pregnancy, unspecified trimester (principal); Z3A.36 36 weeks gestation of pregnancy | CPT/HCPCS: 87081 ==

== ENCOUNTER 2023-11-21 07:05 | Inpatient (IN) | payer OTHER, SELFPAY ==
[2023-11-21] VITALS (62 sets, daily range): BP systolic 94–133; BP diastolic 52–83; PULSE 68–107; RESP 16; TEMP 36.3–37.3; O2SAT 98–100; BMI 28.4
[2023-11-21] MEDS: Lactated Ringers 1,000 ML 50 ML IV (08:17)
[2023-11-21] MEDS: 0.9% Normal Saline Single 100 ML IV.SOLN. INTRA-UTER (08:30)
[2023-11-21 08:34] LABS: Absolute Lymphocyte Count 1.39 X10^3/uL (0.83-4.51); Absolute Neutrophil Count 5.3 X10^3/uL (2.0-7.7); Basophil# 0.01 X10^3/uL; Basophil% 0.1 % (0-1); Eosinophil# 0.05 X10^3/uL; Eosinophils% 0.7 % (0-5); Hematocrit 33.4 % (37-47); Hemoglobin 10.8 g/dL (12.0-15.0); Lymphocyte # 1.39 X10^3/ul (0.83-4.51); Mean Corp Hgb Conc 32.3 g/dL (32-36); Mean Corpuscular Hgb 29.1 pg (27.0-32.0); Mean Platelet Vol. 10.8 fl (6.2-12.0); Monocyte# 0.51 X10^3/uL; NRBC Flagged by Analyzer 0 % (0-5); Neutrophil # 5.32 X10^3/uL (2.7-7.7); Neutrophil % 72.7 % (47-70); Platelet Count 189 K/mm3 (150-450); RBC Distribution Width CV 13.4 % (11.6-14.6); RBC Distribution Width SD 43.7 fl (35.1-43.9); Red Blood Count 3.71 M/mm3 (4.2-5.4); White Blood Count 7.3 K/mm3 (4.4-11.0)
[2023-11-21] MEDS: Oxytocin 15 Units/NS 250ml 15 UNITS/250 ML IV.SOLN 2 UNITS IV (08:44)
--- NOTE | 2023-11-21 09:08 | HP.PCM.OB_ITS ---
HPI - General General Date of Admission: 11/21/23 HPI Narrative LORI CESAR, is a 32 y/o @ 39 weeks who presents to L&D for IOL due to APL (on lovenox), polyhydramnios, and pyelectasis. Maternal Data Information KAYLAH Calculator Estimated Delivery Date Method Current WG Current Estimate 11/28/23 Ultrasound #1 39w 0d Other Estimates 12/05/23 LMP (Certain) 38w 0d PFSH PFSH Medical History Vaginal delivery Anemia affecting History of hysterosalpingogram Anticardiolipin antibody affecting , antepartum Wears contact lenses Wears glasses COVID-19 Septate uterus Mullerian anomaly of uterus Dysmenorrhea Endometriosis determined by laparoscopy (~09/30/18) Home Medications ?Medication ?Instructions ?Recorded ?Last Taken ?Type multivitamin no.47-iron fum 27 1 cap PO DAILY 12/22/20 11/20/23 15:00 History mg-folate no.1 1 mg-dha 300 mg capsule (PNV-DHA) enoxaparin 40 mg/0.4 mL 40 mg (0.4 mL) subcut QDAY APL 30 03/28/23 11/19/23 21:00 Rx subcutaneous syringe (Lovenox) days #12 mL aspirin 81 mg capsule 81 mg PO DAILY APL 04/18/23 11/20/23 21:00 History ferrous sulfate 325 mg (65 mg 325 mg PO DAILY anemia 10/23/23 11/20/23 09:00 History iron) tablet magnesium oxide 500 mg PO DAILY supplement 10/23/23 11/20/23 12:00 History famotidine 20 mg tablet (Pepcid) 20 mg PO DAILY indigestion 11/21/23 11/20/23 12:00 History Allergy/AdvReac Type Severity Reaction Status Date / Time No Known Allergies Allergy Verified 11/21/23 07:56 Family History Father Lymphoma Prostate cancer Grandmother Heart disease Grandfather Heart disease Surgical History [place] teeth extracted History of dilatation and curettage S/P arthroscopy of right shoulder Chromotubation (~09/30/18) Hysteroscopic Metroplastic (~09/30/18) Hx of laparoscopy (~09/30/18) Social History adopted: No household members: spouse and children number of children: 2 current occupational status: unemployed current occupation: [employer] current occupational exposures/hazards: No pets and animals: Yes (NOT MANAGING LITTERBOX) pets and animals: cat(s) history of recent travel: Yes ( -Feb) out of country: Yes sexually active: Yes Smoking Status: Never smoker alcohol intake: never substance use type: does not use well-balanced diet: daily or most days caffeine: Yes Type: coffee Number of servings: 1 eating out: rarely or never during the past year weight has: remained stable what type of physical activity do you participate in: walking and running frequency: 3-4 times per week duration: 15-30 minutes/day ashok/caodaism: Voodoo seatbelt use: always do you feel safe at home: Yes additional social history: [id number] Patient is RN History 6 Elective abortions Hx Para 2 Spontaneous abortions 3 Hx # Term Pregnancies 2 Ectopic pregnancies Hx # Pregnancies Multiple births # of living children 2 Past Pregnancies Del. Date Name GA/Weeks Outcome Route Bth Weight Gen Labor Lgth Anesthesia Del Locatn Provider FOB 09/30/19 Derek 38 live - full term 10lbs 5oz Male 12 hours epidural [facility] Dr. Leonora Vu 11/24/21 Cammie 39 live - full term Female epidu ral [facility] Leonora Vu Delivery Date: 09/30/19 Last Updated by: Lesia Hinojosa Poly, macrosomia Delivery Date: 11/24/21 Last Updated by: Dee Sheffield see problem list for complications, and IOL apl syndrome 39 SM girl Cammie Visit Details Expected Delivery Route/Plan Labor Preferences- CB/BF classes: [] labor support person: [] labor intervention preferences: [] pain management options preferred: [] cut cord/dad catch: [] : [] PP control planned: [] discussed possible routes of delivery and associated risks: [] special requests: [] Plans Covid status: [] Flu vaccine: declined Tdap vaccine: given Rhogam: na LARC form signed:declined movement and labor precautions reviewed. Problem list reviewed and updated with the most current plan of care details and appropriate orders placed. Relevant counseling for the gestational age provided. Continue routine care and follow up unless otherwise noted in visit notes/problem list details OB Flowsheet Initial Weight: Not Recorded Date -?-?-?-?-?-?-?-?-?-?-?-?- EGA Weight BP Urine Prot -?-?-?-?-?-?-?-?-?-?-?-?- Glucose FHR FuHt Pres Dilation -?-?-?-?-?-?-?-?-?-?-?-?- Effaced St Visit Note 04/25/23 -?-?-?-?-?-?-?-?-?-?-?-?- 9w 0d 149 lb 2 oz 118/79 -?-?-?-?-?-?-?-?-?-?-?-?- 160 -?-?-?-?-?-?-?-?-?-?-?-?- JV- CRL measurin g 1 week further than LMP's kaylah. new kaylah given. on lovenox. declines NIPT 05/22/23 -?-?-?-?-?-?-?-?-?-?-?-?- 12w 6d 155 lb 6 oz 115/80 Nega tive -?-?-?-?-?-?-?-?-?-?-?-?- Negative 155 -?-?-?-?-?-?-?-?-?-?-?-?- kw-no vb/crampin g. formal US ordered. doing well. 06/23/23 -?-?-?-?-?-?-?-?-?-?-?-?- 17w 3d 162 lb 4 oz 126/77 Nega tive -?-?-?-?-?-?-?-?-?-?-?-?- Negative 159 -?-?-?-?-?-?-?-?-?-?-?-?- MH-NO VB. Feels well. Will get PN labs today. Declines AFP 07/18/23 -?-?-?-?-?-?-?-?-?-?-?-?- 21w 0d 165 lb 6 oz 110/75 Nega tive -?-?-?-?-?-?-?-?-?-?-?-?- Negative 150 -?-?-?-?-?-?-?-?-?-?-?-?- SM- no vb linda ng declined afp PRR 08/15/23 -?-?-?-?-?-?-?-?-?-?-?-?- 25w 0d 171 lb 2 oz 105/73 Nega tive -?-?-?-?-?-?-?-?-?-?-?-?- Negative 140 25 -?-?-?-?-?-?-?-?-?-?-?-?- LC- no vb/ctx/lo f. good fm, has growths scheduled. 09/11/23 -?-?-?-?-?-?-?--?-?-?-?-?- 28w 6d 179 lb 116/71 Negative -?-?-?-?-?-?-?-?-?-?-?-?- Negative 140 30 -?-?-?-?-?-?-?-?-?-?-?-?- SM- no vb lof go od fm no regular ctx 09/26/23 -?-?-?-?-?-?-?-?-?-?-?-?- 31w 0d 181 lb 109/78 Negative -?-?-?-?-?-?-?-?-?-?-?-?- Negative 145 33 -?-?-?-?-?-?-?-?-?-?-?-?- KW- no vb/lof/ct x. good fm. [facility] today. Has a growth US next week. 10/09/23 -?-?-?-?-?-?-?-?-?-?-?-?- 32w 6d 186 lb 6 oz 104/70 Nega tive -?-?-?--?-?-?-?-?-?-?-?-?- Negative 145 135 33 -?-?-?-?-?-?-?-?-?-?-?-?- KW- no vb/lof/ct x. good fm KW- no vb/lof/ctx. good fm. growth normal on thurs. KW- no vb/lof/ctx. good fm. growth normal on thurs. NST today-reactive 10/16/23 -?-?-?-?-?-?-?-?-?-?-?-?- 33w 6d 183 lb 8 oz 109/73 Trac e -?-?-?-?-?-?-?-?-?-?-?-?- Negative 145 -?-?-?-?-?-?-?-?-?-?-?-?- KW-no vb/lof/ctx . good fm NST reactive 10/23/23 -?-?-?-?-?-?-?-?-?-?-?-?- 34w 6d 184 lb 6 oz 108/69 Nega tive -?-?-?-?-?-?-?-?-?-?-?-?- Negative 140 Cephalic -?-?-?-?-?-?-?-?-?-?-?-?- JV- reactive NST . planning gbs next visit. continue weekly bpp's. 10/30/23 -?-?-?-?-?-?-?-?-?-?-?-?- 35w 6d 183 lb 183 lb 118/74 118/74 Negative -?-?-?-?-?-?-?-?-?-?-?-?- Negative 140 -?-?-?-?-?-?-?-?-?-?-?-?- MH-NST only reac tive 11/07/23 -?-?-?-?-?-?-?-?-?-?-?-?- 37w 0d 188 lb 107/70 Negative -?-?-?-?-?-?-?-?-?-?-?-?- Negative 120 Cephalic -?-?-?-?-?-?-?-?-?-?-?-?- Sm- no vb lof no regular ctx gbs today 11/13/23 -?-?-?-?-?-?-?-?-?-?-?-?- 37w 6d 188 lb 2 oz 138/88 Nega tive -?--?-?-?-?-?-?-?-?-?-?-?- Negative 135 Cephalic -?-?-?-?-?-?-?-?-?-?-?-?- KW- no lof/ctx/v b. good fm. reactive NST. growth US on friday. 11/20/23 -?--?-?-?-?-?-?-?-?-?-?-?- 38w 6d 190 lb 132/79 Negative -?-?-?-?-?-?-?-?-?-?-?-?- Negative 140 -?-?-?-?-?-?-?-?-?-?-?-?- JV- no lof, vagi nal bleeding, or dec fm. IOL set up for tomorrow. ROS Constitutional Constitutional: Denies change in weight, fatigue, fever(s), headache(s), poor appetite or weakness Eyes Eyes: Denies blurry vision, change in vision, seeing flashes or spots in vision ENT HEENT: Denies dizziness, headache(s), loss taste/smell or sore throat Cardiovascular Cardiovascular: Denies chest pain, dizziness, dyspnea, irregular heart rhythm, leg edema, palpitations, rapid heart rate or vomiting Respiratory/Chest Respiratory/Chest: Denies chest tightness, cough, dyspnea or breast pain Gastrointestinal Gastrointestinal: Denies abdominal pain, anorexia, constipation, cramping, diarrhea, hemorrhoids, vomiting or weight changes Genitourinary Genitourinary: Denies dysuria, flank pain, genital lesions, genital pain, urinary frequency or urinary urgency Musculoskeletal Musculoskeletal: Denies back pain, difficulty walking, joint pain, limited range of motion, muscle cramps or numbness Integumentary Integumentary: Denies lesions or unusual bruising Neurologic Neurologic: Denies abnormal movements, abnormal speech, dizziness, numbness, seizure-like activity or syncope Psychiatric Psychiatric: Denies anxiety, behavioral changes, change in appetite, change in libido, cognitive impairment, confusion, depression, difficulty concentrating, hallucinations or suicidal thoughts Endocrine Endocrinology: Denies excessive sweating, polydipsia or polyuria Hematologic/Lymphatic Hematologic/Lymphatic: Denies easy bleeding, easy bruising or lymphadenopathy Allergic/Immunologic Allergic/Immunologic: Denies itchy eyes, lip swelling, seasonal rhinorrhea, rhinitis, throat swelling, tongue swelling, eczemia, wheezing or asthma Vital Signs Vital Signs Vital Signs: 11/21/23 07:39 11/21/23 07:39 11/21/23 07:39 Temperature Temperature Source Temporal Pulse Rate 97 Respiratory Rate Blood Pressure 114/77 BP Systolic 114 BP Diastolic 77 Pulse Ox 11/21/23 07:39 11/21/23 07:39 11/21/23 07:39 Temperature 97.8 F Temperature Source Pulse Rate Respiratory Rate 16 Blood Pressure BP Systolic BP Diastolic Pulse Ox 99 11/21/23 09:00 11/21/23 09:00 Temperature Temperature Source Pulse Rate 77 Respiratory Rate Blood Pressure BP Systolic BP Diastolic Pulse Ox 100 Weight Weight: 192 lb 10.944 oz Body Mass Index (BMI) 28.4 Physical Exam Const alert, oriented x3, no apparent distress and healthy appearing General Appearance: cooperative; Negative for anxious HEENT normocephalic Face and Sinus: normal facial exam Eyes EOMs intact bilaterally and no scleral icterus General Eye: normal appearance of both eyes Neck full ROM and supple Lymph Lymphatic: no lymphadenopathy noted Chest Chest: abnormal inspection of the chest Resp normal respiratory effort Effort and Inspection: able to speak in complete sentences Cardio regular rate GI soft to palpation and non-tender Inspection: gravid Palpation: soft; Negative for tender external exam normal Narrative: celis bulb was inserted into the cervix (/-3) and membranes ruptured incidentally. Clear fluid returned. Amniotic Fluid: ROM+plus Back/Spine no CVA tenderness Extremity normal to inspection, full ROM and no clubbing, cyanosis or edema General Extremity: Negative for calf tenderness or edema Skin Lesions: no lesions Rashes: no rashes Psych mental status grossly normal Labs Labs Labs: Blood Type O POSITIVE Antibody Screen NEGATIVE Hct 33.4 % (37-47) L Hgb 10.8 g/dL (12.0-15.0) L Pap Smear Negative Syphilis Total Ab Non-reactive Rubella IgG Antibody Reactive (Nonreactive) Hep Bs Antigen Non-Reactive (Nonreactive) Hepatitis C Antibody Non-Reactive (Nonreactive) Chlamydia DNA (ABBIE) Negative (Negative) N.gonorrhoeae DNA (ABBIE) Negative (Negative) HIV 1&2 Antibody Non-Reactive (Nonreactive) Glucose 1 Hr 50 gm 114 mg/dL (70-140) Gest Glucose Tolerance MG/DL Rhogam given: Yes Assessment & Plan (1) Polyhydramnios affecting : COMMENT: mild. MARLENI 25 at BP (2) Echogenic intracardiac focus of fetus on ultrasound: COMMENT: discuss NIPT option (3) pyelectasis: COMMENT: mild (4) Supervision of high-risk : QUALIFIERS: Trimester: second trimester Qualified Code(s): O09.92 - Supervision of high risk , unspecified, second trimester COMMENT: PRR , KAYLAH 12/05/23, surprise PC Cammie David, Horace (5) : QUALIFIERS: Weeks of gestation: 38 weeks Qualified Code(s): Z3A.38 - 38 weeks gestation of COMMENT: Neg GBS. 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 recommend weekly nst after 32, growth US q 4 weeks (95% at 38 weeks). deliver at 39, lovenox for 6 weeks PLAN: Plan Patient presents IOL, plan management for with pitocin and will keep celis in place as it is already in. Pain management: plans epidural. GBS negative. Management of any complications: APL on lovenox. last dose 2 days ago. I have reviewed the [facility] and made any clinically relevant updates.
[2023-11-21 09:13] LABS: Syphilis Antibodies Non-reactive
[2023-11-21] MEDS: Lactated Ringers 1,000 ML 999 ML IV (10:51)
[2023-11-21] MEDS: fentaNYL-bupivacaine (epidural) 100 ML BAG EPIDURAL ×2 (12:21→16:09)
[2023-11-21] MEDS: Lactated Ringers 1,000 ML 200 ML IV (16:09)
[2023-11-21] MEDS: Mag /Aluminum/Simeth WCH UDC 30 ML ORAL.SUSP PO (16:24)
[2023-11-21] MEDS: Oxytocin 15 Units/NS 250ml 15 UNITS/250 ML IV.SOLN 83 UNITS IV (18:22)
--- NOTE | 2023-11-21 18:22 | OP.PCM_ITS ---
Assessment & Plan (1) Polyhydramnios affecting : COMMENT: mild. MARLENI 25 at BPP (2) Echogenic intracardiac focus of fetus on ultrasound: COMMENT: discuss NIPT option (3) pyelectasis: COMMENT: mild (4) Supervision of high-risk : QUALIFIERS: Trimester: second trimester Qualified Code(s): O09.92 - Supervision of high risk , unspecified, second trimester COMMENT: PRR , KAYLAH 12/05/23, surprise PC Joann, Cammie, Horace (5) : QUALIFIERS: Weeks of gestation: 38 weeks Qualified Code(s): Z3A.38 - 38 weeks gestation of COMMENT: Neg GBS. 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 recommend weekly nst after 32, growth US q 4 weeks (95% at 38 weeks). deliver at 39, lovenox for 6 weeks Maternal Data Information KAYLAH Calculator Estimated Delivery Date Method Current WG Current Estimate 11/28/23 Ultrasound #1 39w 0d Other Estimates 12/05/23 LMP (Certain) 38w 0d Final KAYLAH: 11/28/23 Final KAYLAH Source: US <20 weeks Gestational age: 39 weeks 0 days Vaginal Delivery Maternal Presentation Maternal Presentation: Medically Indicated Induction Type of Induction: Pitocin, Rivas Bulb and Amniotomy Operative Information Date of Procedure: 11/21/23 Pre-Operative Diagnosis: 32 y/o @ 39 weeks, APL on lovenox Post-Operative Diagnosis: 32 y/o @ 39 weeks, APL on lovenox Surgery / Procedure Performed: Spontaneous Vaginal Delivery Type of Anesthesia: Epidural Drain: Rivas to straight drain Estimated Blood Loss: 50cc Time of Delivery: 17:40 Findings Description of Procedure: Patient began pushing and delivered the head in the ROSAMARIA presentation. The head was delivered atraumatically and a loose nuchal cord ?1 was identified and easily reduced over the infant's head. The anterior and posterior shoulders delivered without complication followed by the rest of the and the was placed on the maternal abdomen. Delayed cord clamping was employed for approximately 60 seconds. Cord was clamped and cut and gentle traction was applied to the cord and the placenta delivered spontaneously immediately following it was noted to be intact with three-vessel cord. The perineum and vagina were inspected and noted to have a 1st degree laceration. This was repaired with a 3-0 vicryl rapide suture. EBL was 50cc. Patient and infant tolerated delivery well. Presentation: Vertex Amniotic Membrane Rupture Type: Spontaneous Amniotic Fluid Description: Clear Placental Delivery Description: Spontaneous Placenta Disposition: [facility] Cord Vessel Description: 3 Vessels Cord Entanglement: Around neck x 1, loose A Gender: Female (1 minute): 8 (5 minute): 9 Delayed Cord Clamping: Yes Post Vaginal Delivery Medications Given After Delivery: IV Pitocin Episiotomy Description: None Complication Complications: None Multi Select Codes Urinary/Genital Urinary/Genital CPT Codes: 22487 Vaginal Delivery [facility]
--- NOTE | 2023-11-21 18:24 | DCINST_ITS ---
Discharge Instructions Diet Discharge Diet: No restrictions Activity Discharge Activity: Return to Normal Activity, May Not Drive (while taking narcotic pain medications.) and May Shower May resume sexual activity in: 4-6 weeks Dressing / Incision Call your doctor if your incision/area has: Continuous Slow Oozing, Sudden Increased Bleeding, Increased Pain/ Swelling, Increased Redness and Foul Smelling Discharge Follow Up Care Please Follow Up With: Cher Aly, When: Call [phone] to make an appointment with your doctor in 6 weeks. If you had elevated blood pressure or 4th degree laceration, you will need to be seen in 2 weeks. Test Results: Test results from this visit will be discussed in further detail at your follow- up appointment, if applicable. Discharge Plan Admission Admit Date/Time: 11/21/23 07:05 Attending Provider: Cher Aly Primary Care Provider: Care Physician,Katlin Primary Discharge Orders/Prescriptions Prescriptions: No Action PNV-DHA 27 mg iron-1 mg -300 mg capsule 1 cap PO DAILY aspirin 81 mg capsule 81 mg PO DAILY ferrous sulfate 325 mg (65 mg iron) tablet 325 mg PO DAILY magnesium oxide 500 mg magnesium tablet 500 mg PO DAILY famotidine [Pepcid] 20 mg tablet 20 mg PO DAILY enoxaparin [Lovenox] 40 mg/0.4 mL syringe 40 mg subcut QDAY 30 Days Qty: 12 12RF Referrals / Follow Up: Care Physician,No Primary [Primary Care Provider] -
[2023-11-21] MEDS: Ibuprofen 600 MG Tablet PO (21:01)
[2023-11-21] MEDS: 0.9% Saline Lock 10 ML Syringe IV (21:36)
[2023-11-21] MEDS: Acetaminophen 500 MG Tablet 1000 MG PO (22:33)
[2023-11-22] VITALS (9 sets, daily range): BP systolic 105–129; BP diastolic 60–81; PULSE 60–88; RESP 16; TEMP 36.3–37.3; O2SAT 97–100
[2023-11-22] MEDS: Enoxaparin 40 MG/0.4 ML Syringe SC (00:12)
[2023-11-22] MEDS: Ibuprofen 600 MG Tablet PO ×3 (03:16→15:13)
[2023-11-22] MEDS: Acetaminophen 500 MG Tablet 1000 MG PO ×2 (06:27→12:36)
[2023-11-22] MEDS: Famotidine 20 MG Tablet PO (09:32)
--- NOTE | 2023-11-22 10:13 | PCM.PN.OB ---
Subjective Subjective Patient doing well without complaints. Tolerating PO. Ambulating and voiding without difficulty. Feeding well. Denies chest pain, shortness of breath, calf pain/swelling, fevers, chills, lightheadedness. Objective Data Objective Data Vital Signs: Vital Signs Temp Pulse Resp BP Pulse Ox O2 Del Method 98.0 F 70 16 129/78 H 97 Room Air 11/22/23 08:43 11/22/23 08:43 11/22/23 08:43 11/22/23 08:43 11/22/23 08:43 11/22/23 08:43 Oxygen Delivery Method Room Air Weight: 192 lb 10.944 oz Body Mass Index (BMI) 28.4 Intake & Output: Intake and Output for Last 24 Hours 11/20/23 11/21/23 11/22/23 23:59 23:59 23:59 Intake Total 2795.00 / 2795.00 Output Total 1450 / 1450 601 / 601 Balance 1345.00 / 1345.00 -601 / -601 Lab / Micro Data 11/21/23 08:17 ROS Constitutional Constitutional: Denies chills, fatigue, fever(s), poor appetite or weakness Eyes Eyes: Denies blurry vision, change in vision, seeing flashes or spots in vision ENT HEENT: Denies dizziness, headache(s), loss taste/smell or sore throat Cardiovascular Cardiovascular: Denies chest pain, dizziness, dyspnea, irregular heart rhythm, palpitations or rapid heart rate Respiratory/Chest Respiratory/Chest: Denies chest tightness, cough, dyspnea or breast pain Gastrointestinal Gastrointestinal: Denies abdominal pain, constipation or vomiting Genitourinary Genitourinary: Denies dysuria or flank pain Musculoskeletal Musculoskeletal: Denies difficulty walking, joint pain, limited range of motion or numbness Neurologic Neurologic: Denies abnormal movements, abnormal speech, dizziness, numbness, seizure-like activity or syncope Psychiatric Psychiatric: Denies anxiety, behavioral changes, change in appetite, confusion, depression or suicidal thoughts Physical Exam Const alert, oriented x3 and no apparent distress General Appearance: cooperative and comfortable Resp normal respiratory effort Cardio regular rate GI normal to inspection, nondistended, normoactive bowel sounds GI Narrative: uterus is firm below umbilicus Palpation: soft Back/Spine no CVA tenderness and thoraco-lumbar ROM normal Extremity normal to inspection, no clubbing, cyanosis or edema, no calf tenderness and no pedal edema Psych mental status grossly normal, thought process normal, cooperative, affect normal, speech normal, activity/motor behavior normal, denies homicidal ideation and denies suicidal ideation Assessment & Plan (1) Status post vaginal delivery: (2) Antiphospholipid antibody syndrome: COMMENT: lovenox and asa in . recommend weekly nst after 32, growth US q 4 weeks (95% at 38 weeks). deliver at 39, lovenox for 6 weeks PLAN: Plan s/p PPD # 1 1. routine post delivery care 2. breast feeding- support given 3. rh positive 4. rubella immune 5. APL- continue lovenox x 6 weeks
== END 2023-11-22 19:30 | disposition home or self-care (01) | DRG 806 ==
PROVIDERS: Admitting Provider Obstetrics & Gynecology; Referring Provider Obstetrics & Gynecology; Visit Provider Obstetrics & Gynecology
DX: O40.3XX0 Polyhydramnios, third trimester, not applicable or unspecified (principal); Z37.0 Single live birth; O99.12 Other diseases of the blood and blood-forming organs and certain disorders involving the immune mechanism complicating childbirth; D68.61 Antiphospholipid syndrome; N13.30 Unspecified hydronephrosis; O26.23 Pregnancy care for patient with recurrent pregnancy loss, third trimester; O69.81X0 Labor and delivery complicated by cord around neck, without compression, not applicable or unspecified; O70.0 First degree perineal laceration during delivery; Z80.42 Family history of malignant neoplasm of prostate; Z86.16 Personal history of COVID-19; Z79.82 Long term (current) use of aspirin; Z79.01 Long term (current) use of anticoagulants; Z3A.39 39 weeks gestation of pregnancy; O99.892 Other specified diseases and conditions complicating childbirth
CPT/HCPCS: 59025; 59050; 85025; 86780; 86850; 86900; 86901; 99221; J7120; A4216; G0378

== ENCOUNTER → 2024-01-16 | Outpatient (CLI) | payer SELFPAY ==
--- NOTE | 2024-01-16 12:49 | US_ITS ---
EXAM: US PELVIS TRANSABDOMINAL AND TRANSVAGINAL, COMPLETE CLINICAL INDICATION: for IUD placement confirmation TECHNIQUE: Transabdominal and transvaginal pelvic ultrasound was performed with grayscale and color Doppler imaging. Transvaginal imaging was used for better evaluation of the endometrium and adnexa. COMPARISON: No relevant prior studies available. FINDINGS: UTERUS/CERVIX: Uterus is normal in size and echogenicity measuring 11.3 x 5.6 x 7.8 cm. Endometrial thickness is normal measuring 4 mm. There is no uterine mass. RIGHT OVARY: Right ovary is normal in size and echogenicity measuring 4.3 x 3 x 3.2 cm. Normal follicles. No mass or dominant cyst. LEFT OVARY: Left ovary is normal in size and echogenicity, measuring 3.6 x 2.5 x 2.3 cm. Normal follicles. No mass or dominant cyst. FREE FLUID: None. BLADDER: Bladder is well-distended and is unremarkable. TUBES, LINES AND DEVICES: Intrauterine device is identified in the posterior myometrium. IUD is NOT within the endometrial cavity. US/Pelvic w/ Transvaginal IMPRESSION: IUD in the posterior myometrium. This should be removed. Electronically Signed: Ani Mathew MD at 20:44 EDT Reading Location ID and State: [id number] / Tel , Service support ,
== END | disposition home or self-care (01) ==
LOC: US 12:46
PROVIDERS: Referring Provider Obstetrics & Gynecology; Visit Provider Obstetrics & Gynecology
DX: Z97.5 Presence of (intrauterine) contraceptive device (principal)
CPT/HCPCS: 76830; 76856

== ENCOUNTER 2024-01-20 11:27 | Day surgery (SDC) | payer SELFPAY ==
[2024-01-20] VITALS (8 sets, daily range): BP systolic 109–126; BP diastolic 73–88; PULSE 56–71; RESP 16; TEMP 36.1–36.6; O2SAT 97–100; BMI 23.4
--- NOTE | 2024-01-20 06:25 | HP.PCM_ITS ---
History and Physical Date of Admission: 01/20/24 Intake Vital Signs 01/07/2411:11 01/18/2409:54 01/18/2409:55 Height 5 ft 9 in 5 ft 9 in 5 ft 9 in Weight: 161 lb BMI 23.8 BP 122/85 H Intake Visit Reasons: IUD REMOVAL English And Reading Instructor Required: No Is patient in pain?: Yes Allergies No Known Allergies Allergy (Verified 01/19/24 09:55) Medications ?Medication ?Instructions ?Recorded ?Confirmed ?Type multivitamin no.47-iron fum 27 1 cap PO DAILY 12/22/20 01/19/24 History mg-folate no.1 1 mg-dha 300 mg capsule (PNV-DHA) magnesium oxide 500 mg PO DAILY supplement 10/23/23 01/19/24 History PFSH PFSH Medical History Vaginal delivery Anemia affecting History of hysterosalpingogram Anticardiolipin antibody affecting , antepartum Wears contact lenses Wears glasses COVID-19 Septate uterus Mullerian anomaly of uterus Dysmenorrhea Endometriosis determined by laparoscopy (~09/30/18) Surgical History [place] teeth extracted History of dilatation and curettage S/P arthroscopy of right shoulder Chromotubation (~09/30/18) Hysteroscopic Metroplastic (~09/30/18) Hx of laparoscopy (~09/30/18) Family History Father Lymphoma Prostate cancerGrandmother Heart diseaseGrandfather Heart disease Social History adopted: No household members: spouse and children number of children: 3 current occupational status: unemployed current occupation: [employer] current occupational exposures/hazards: No pets and animals: Yes (NOT MANAGING LITTERBOX) pets and animals: cat(s) history of recent travel: Yes ( -Feb) out of country: Yes sexually active: Yes Smoking Status: Never smoker alcohol intake: never substance use type: does not use well-balanced diet: daily or most days caffeine: Yes Type: coffee Number of servings: 1 eating out: rarely or never during the past year weight has: remained stable what type of physical activity do you participate in: walking and running frequency: 3-4 times per week duration: 15-30 minutes/day ashok/sabianist: Caodaism seatbelt use: always do you feel safe at home: Yes additional social history: Ioaacol-Npvp-RIIV Patient is RN History 6 Elective abortions Hx Para 3 Spontaneous abortions 3 Hx # Term Pregnancies 3 Ectopic pregnancies Hx # Pregnancies Multiple births # of living children 3 Past Pregnancies Del. Date Name GA/Weeks Outcome Route Bth Weight Infant Gen Labor Lgth Anesthesia Del Locatn Provider FOB 09/30/19 Deerk 38 live - full term 10lbs 5oz Male [address] [facility] Dr. Leonora Vu 11/24/21 Cammie 39 live - full term NS VD Female epidural [facility] Leonora Vu 11/21/23 Charly 39 live - full term 9lbs 13oz Female [facility] Taisha Ferris Horace Delivery Date: 09/30/19 Last Updated by: Lesia Hinojosa Poly, macrosomia Delivery Date: 11/24/21 Last Updated by: Dee Sheffield see problem list for complications, and IOL apl syndrome 39 SM girl Cammei HPI IUD REMOVAL Details: LORI CESAR is a 33 year old who presents for iud removal due to malposition. she has been having cramping and pain, irregular bleeding. it was placed . she denies any fevers. US shows it embedded in the posterior myometrium. repeat ultrasound shows possible partial endometrium/myometrium ROS Const Constitutional: Reports system reviewed and no additional complaints, except as documented : Reports system reviewed and no additional complaints, except as documented and as per HPI Exam Const General: cooperative, healthy appearing, comfortable and no acute distress External Female Exam: normal external appearance and normal appearance of the urethra Urethra: normal appearance of the urethra Speculum Exam - Vagina: normal appearance of the vagina and normal vaginal discharge Speculum Exam - Cervix: normal appearance of the cervix (no strings seen) Coding Level of Care Code Off vis,est,level 4 Diagnoses Malpositioned intrauterine device (IUD), initial encounter T83.32XA Encounter type: initial encounter Assessment and Plan Assessment and Plan (1) Malpositioned IUD: Status: Acute Qualifiers: Encounter type: initial encounter Qualified Code(s): T83.32XA - Displacement of intrauterine contraceptive device, initial encounter Plan strings are not seen, recommend hysteroscopic removal of the IUD. I discussed with the patient hysteroscopic removal, possible laparoscopy. I also discussed the risk of hysterectomy, bleeding. will add on case for tomorrow After discussing the patient's diagnosis and treatment plan options, patient wishes to proceed with surgical management. I have discussed with the patient the risks, benefits, and alternatives of the procedure which include but are not limited to risks of anesthesia, bleeding, infection, possible damage to bowel, bladder, or surrounding vasculature which could lead to additional surgery to evaluate any complications. Patient agrees to procedure and wishes to proceed. ACOG/uptodate references given for additional information regarding procedure. UPDATE- I have seen the patient and performed any clinically relevant updates to the history and physical exam. Leonora Maher MD
[2024-01-20] MEDS: Lactated Ringers 1,000 ML 15 ML IV (12:02)
--- NOTE | 2024-01-20 13:00 | PRE.ANES_ITS ---
ASA Classification* ASA Classification ASA Classification: 2 Assessment & Plan Anesthesia* Anesthesia Assessment Anesthesia Assessment: Discussed sedation and/or anesthesia options, risks, benefits, and alternatives with patient/parents/legal guardian/POA. Questions invited. The patient/parents/legal guardian/POA seems to understand and agrees to proceed with anesthesia plan. Reviewed the physical assessment, medical history, allergy history and patient home medications list prior to surgery/procedure/anesthetic and documented any changes. Performed airway and anesthesia risk assessments. Anesthesia Type Anesthesia Type: MAC History Source History Obtained from:: Patient and Chart Anesthesia Focused Assessment* Temperature: 98 F Pulse Rate: 71 Blood Pressure: 113/86 Respiratory Rate: 16 Pulse Ox: 100 Oxygen Delivery Method: Room Air Airway Assessment Mouth opens: >3 cm Mallampati Score: I Teeth Condition: Intact Neck Range of motion (ROM): Full ROM Focused Labs Anesthesia Preop lab: CBC WBC 7.3 K/mm3 (4.4-11.0) 01/20/24 11:53 RBC 4.72 M/mm3 (4.2-5.4) 01/20/24 11:53 Hgb 13.9 g/dL (12.0-15.0) 01/20/24 11:53 Hct 42.6 % (37-47) 01/20/24 11:53 Plt Count 272 K/mm3 (150-450) 01/20/24 11:53 CHEMISTRY COAG HCG, Quant 5189 mIU/mL (1-3) H 04/02/21 08:37 Urine Test Negative Negative 01/20/24 11:40 Pre-Assessment Diagnosis/Proposed Procedure Planned Operative Procedure(s): HYSTEROSCOPY DIAGNOSTIC DIAGNOSTIC LAPAROSCOPY IUD REMOVAL Anesthesia History Anesthesia History - ase master mechanic: Anesthesia History - ase master mechanic Hx Hospitalization No 01/19/24 11:25 Any Problems With Anesthesia No 01/19/24 11:25 Cholinesterase deficiency No 01/19/24 11:25 You/Your Family Experience No 01/19/24 11:25 fever (hyperthermia) with Relationship Recent Exposure to Contagious No 01/20/24 12:02 Disease Does patient have nerve No 01/19/24 11:25 stimulator Patient instructed to have device shut off --Does patient have Pacemaker No 01/20/24 12:02 or ICD? When Was Last Pacemaker Check QUESTION #4 FULL TEXT: You/Your Family Experience fever (hyperthermia) with Anesthesia Last Oral Intake Last Oral intake: Last Oral Intake NPO since 07:30 01/20/24 12:02 Meds taken in AM with sips of water? Meds patient instructed to motrin 800mg, tylenol 1000mg 01/20/24 12:02 take am of surgery PONV PONV - ase master mechanic: PONV - ase master mechanic Female Yes 01/19/24 11:25 HX of Motion Sickness No 01/19/24 11:25 HX of N/V After Surgery No 01/19/24 11:25 Non-Smoker Yes 01/19/24 11:25 Duration of Surgery greater Yes 01/19/24 11:25 than 60 minutes Number of Risk Factors 3 01/19/24 11:25 PONV Score Moderate Risk 01/19/24 11:25 Height & Weight Height & Weight: Anesthesia: Height & Weight Height 5 ft 9 in 01/20/24 12:02 Weight: 72 kg 01/20/24 12:02 Body Mass Index (BMI) 23.4 01/20/24 12:02 Respiratory Assessment Respiratory Assessment - ase master mechanic: Respiratory Tract Infection Hx - ase master mechanic Hx Respiratory Tract Infection No 01/19/24 11:25 STOP Sleep Apnea STOP Sleep Apnea - ase master mechanic: STOP Sleep Apnea - ase master mechanic Hx Hypertension No 01/19/24 11:25 Hx Sleep Apnea No 01/19/24 11:25 CPAP BIPAP Do you snore loudly (louder No 01/19/24 11:25 than talking or can be heard Do you often feel tired/ No 01/19/24 11:25 fatigued/ sleepy during daytime? Has anyone observed you stop No 01/19/24 11:25 breathing during sleep? STOP Results Negative 01/19/24 11:25 QUESTION #5 FULL TEXT : Do you snore loudly (louder than talking or can be heard through closed doors)? Tobacco Use History Tobacco Use History - ase master mechanic: Tobacco Use History - ase master mechanic Tobacco Use Smoking Status Never smoker 01/19/24 11:25 Hx Tobacco Use No 01/19/24 11:25 Years Smoking Packs Smoked per Day Smoking Cessation Date was within the last 15 years Hx Smoking Cessation Date Hx Smoking Cessation Counseling Hematologic Medial History Hematologic Hx - ase master mechanic: Hematologic Medical Hx - advanced seal delivery system Hx of Blood Transfusion No 01/19/24 11:25 Hx of Transfusion in last 3 No 01/19/24 11:25 Months Date of Last Transfusion (if within last 3 months) Ever experience any problems No 01/19/24 11:25 with transfusion(s)? Specify any problems Hx of Preganancy in last 3 Yes 01/19/24 11:25 Months Nurse Filling Out Transfusion DSCHRIBER 01/19/24 11:25 & Questions: Date: 01/19/24 01/19/24 11:25 Time: 11:26 01/19/24 11:25 Patient unable to answer at this time (ie. confused, unrespo /Reproduction History /Reproductive History - ase master mechanic: /Reproductive Hx- ase master mechanic Hx Now No 01/19/24 11:25 Gestational Age (in weeks): EDC: Hx Hx Para Hx Section SAB Yes 01/19/24 11:25 Active Medications Active Medications: Current Medications Generic Name Dose Route Start Last Admin Trade Name Freq PRN Reason Stop Dose Admin Hydrocodone Bitart/Acetaminophen 1 - 2 tablet 01/20/24 13:33 Hydrocodone Bitartrate/Apap 5/325 Tablet PO Q6H PRN PRN Pain Score 1-10 Lactated Ringer's 1,000 mls @ 15 mls/hr 01/20/24 11:45 01/20/24 12:02 IV 15 mls/hr .Q48H CM Administration Ondansetron HCl 4 mg 01/20/24 13:33 Ondansetron 4 Mg/2 Ml Vial IM X1 PRN NAUSEA PFSH Medical History () Non-smoker Vaginal delivery Anemia affecting History of hysterosalpingogram Anticardiolipin antibody affecting , antepartum Wears contact lenses Wears glasses Septate uterus Mullerian anomaly of uterus Dysmenorrhea Endometriosis determined by laparoscopy (~09/30/18) Home Medications ?Medication ?Instructions ?Recorded ?Last Taken ?Type multivitamin no.47-iron fum 27 1 cap PO DAILY 12/22/20 01/19/24 History mg-folate no.1 1 mg-dha 300 mg capsule (PNV-DHA) magnesium oxide 500 mg PO DAILY supplement 10/23/23 01/19/24 History Allergy/AdvReac Type Severity Reaction Status Date / Time No Known Allergies Allergy Verified 01/20/24 12:00 Family History Father Lymphoma Prostate cancer Grandmother Heart disease Grandfather Heart disease Surgical History [place] teeth extracted History of dilatation and curettage S/P arthroscopy of right shoulder Chromotubation (~09/30/18) Hysteroscopic Metroplastic (~09/30/18) Hx of laparoscopy (~09/30/18) Social History adopted: No household members: spouse and children number of children: 3 current occupational status: unemployed current occupation: [employer] current occupational exposures/hazards: No pets and animals: Yes (NOT MANAGING LITTERBOX) pets and animals: cat(s) history of recent travel: Yes ( -Feb) out of country: Yes sexually active: Yes Smoking Status: Never smoker alcohol intake: never substance use type: does not use well-balanced diet: daily or most days caffeine: Yes Type: coffee Number of servings: 1 eating out: rarely or never during the past year weight has: remained stable what type of physical activity do you participate in: walking and running frequency: 3-4 times per week duration: 15-30 minutes/day ashok/nondenominational: Yarsani seatbelt use: always do you feel safe at home: Yes additional social history: [id number] 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
[2024-01-20] MEDS: Cefotetan 2 GM in 0.9% Normal Saline (100mL MB+) 100 ML IV (13:30)
--- NOTE | 2024-01-20 13:30 | PCM.OPRPT ---
Problems Associated Problem List Diagnoses (1) Malpositioned IUD: Report of Operation Date of Procedure: 01/20/24 Pre-Operative Diagnosis: see problem list Post-Operative Diagnosis: same Surgery/Procedure Performed:: hysteroscopy diagnostic laparoscopy abdominal xray umbilical hernia repair Description of Surgical Findings:: Normal uterine lining with no strings or IUD seen. Abdominal x-ray showing intra-abdominal IUD present. Umbilical hernia 1 cm in size Surgeon: Leonora Maher clinical sales consultant: Sher Felix Type of Anesthesia: Local MAC Special Medications: none Specimen's removed: iud Drains: none Estimated Blood Loss (mL): 50 Fluids Replaced: crystalloid Description of Procedure: Patient was prepped and draped in a normal sterile fashion under MAC anesthesia. A weighted speculum was placed in the vagina and the anterior lip of the cervix was grasped with a single-tooth tenaculum. A paracervical block was placed with 1% lidocaine. Cervix was progressively dilated to allow passage of a 5 mm hysteroscope. The lining was fully visualized and noted to have no IUD or strings seen. At this time the decision was made to perform an abdominal x-ray to confirm that the IUD was still inside the patient. It was performed and the IUD was seen in the intra-abdominal cavity. The patient has already been prepped with an abdominal prep, patient was intubated. Intraumbilical incision was made after injecting with lidocaine and various needle entered into the abdomen confirmed to be intra-abdominal with a low opening pressure and abdomen was insufflated with CO2 gas. 5 mm trocar was entered into the abdomen and right left lower quadrant ports were placed under direct visualization. IUD visualized in the left lower quadrant behind the uterus. It was freely movable and not attached to anything. Posterior uterine wall perforation was noted and no significant damage noted. IUD was easily removed through the right lower quadrant port without complication. Per patient's request she had noted an umbilical hernia that had bothered her before and she asked that if we did a laparoscopy could I please close this so the umbilical edges were roughed up with Downing scissors and using a Roger Momin and an 0 Vicryl [id number] suture was placed around the edges of the 1 cm umbilical hernia and through the fascia a [id number] suture was placed. All ports were removed from the abdomen and sponge stick removed from the vagina. Incisions closed with Monocryl and Dermabond. All instruments were removed from the vagina and excellent hemostasis was noted. Patient was awoken and taken to recovery in stable condition. Grafts/Implants Used: none Procedure Start Time: 13:47 Procedure Stop Time: 14:39 Complications none Admit VTE Documentation VTE Present on Admission: No VTE Mechan Device Prophylaxis: SCD's Multi Select Codes Urinary/Genital Urinary/Genital CPT Codes: 98004 Hysteroscopy, diagnostic and Other Procedure See Report ([id number], [id number])
--- NOTE | 2024-01-20 13:32 | DCINST_ITS ---
Discharge Instructions Diet Discharge Diet: No restrictions Activity Discharge Activity: Return to Normal Activity, May Shower and May Take a Tub Bath (after 1 week) May resume sexual activity in: 1-2 weeks Weight Bearing Status: Weight bearing as tolerated Lifting Restrictions: none Dressing / Incision Call your doctor if you observe: Fever of 101 or Higher, Using more than 1 pad per hour, Shortness of breath and Uncontrolled pain Follow Up Care Please Follow Up With: Leonora Maher MD When: Call [phone] to schedule appointment. Test Results: Test results from this visit will be discussed in further detail at your follow- up appointment, if applicable. Discharge Plan Admission Attending Provider: Leonroa Maher Primary Care Provider: Care Physician,No Primary Instructions Print Language: Bruneian Discharge Orders/Prescriptions Prescriptions: No Action PNV-DHA 27 mg iron-1 mg -300 mg capsule 1 cap PO DAILY magnesium oxide 500 mg magnesium tablet 500 mg PO DAILY Referrals / Follow Up: Care Physician,No Primary [Primary Care Provider] - Disposition Disposition (needs filled in before D/C Order can be placed): Home, Self Care
--- NOTE | 2024-01-20 13:32 | PCM.DC ---
Discharge Instructions Diet Discharge Diet: No restrictions Activity Discharge Activity: Return to Normal Activity, May Shower and May Take a Tub Bath (after 1 week) May resume sexual activity in: 1-2 weeks Weight Bearing Status: Weight bearing as tolerated Lifting Restrictions: none Dressing / Incision Call your doctor if your incision/area has: Continuous Slow Oozing, Sudden Increased Bleeding, Increased Pain/ Swelling, Increased Redness and Foul Smelling Discharge Call your doctor if you observe: Fever of 101 or Higher, Using more than 1 pad per hour, Shortness of breath and Uncontrolled pain Suture Line Care: Avoid Pulling/Pushing and Avoid Pinching/Bending Remove Dressing in: 1 week (if present) Cleanse incision/area with: Soap & Water and Keep Dressing Clean & Dry Follow Up Care Please Follow Up With: Leonora Maher MD When: Call [phone] to schedule appointment. Test Results: Test results from this visit will be discussed in further detail at your follow-up appointment, if applicable. Discharge Plan Admission Attending Provider: Leonora Maher Primary Care Provider: Care Physician,Katlin Primary Instructions Print Language: Czech Discharge Orders/Prescriptions Prescriptions: New oxycodone-acetaminophen [Percocet] 5-325 mg tablet 1 tab PO Q6H PRN (Reason: pain) 7 Days Qty: 10 0RF naproxen 500 mg tablet 500 mg PO BID PRN PRN (Reason: Pain) Qty: 30 1RF No Action PNV-DHA 27 mg iron-1 mg -300 mg capsule 1 cap PO DAILY magnesium oxide 500 mg magnesium tablet 500 mg PO DAILY Referrals / Follow Up: Care Physician,Katlin Primary [Primary Care Provider] - Disposition Disposition (needs filled in before D/C Order can be placed): Home, Self Care
[2024-01-20] MEDS: Lidocaine 2% (20 ml mdv) 20 ML Vial (13:52)
--- NOTE | 2024-01-20 13:57 | RAD_ITS ---
STUDY: X-RAY - PELVIS REASON FOR EXAM: Female, 33 years old. FB TECHNIQUE: One view of the pelvis was obtained. COMPARISON: None. FINDINGS: IUD is seen in the left hemipelvis. RAD/O.R. Fluoro for C-Arm IMPRESSION: IUD is seen in the left hemipelvis. Electronically Signed: Dl Massey MD at 12:53 EDT ,
[2024-01-20] MEDS: Bupivacaine 0.25% 30 ML Vial (14:30)
--- NOTE | 2024-01-20 14:53 | PCM.POST.ANE ---
Anesthesia: Postop Eval I Current Vital Signs Temperature: 97.3 F Pulse Rate: 67 Blood Pressure: 126/73 Respiratory Rate: 16 Pulse Ox: 100 Oxygen Delivery Method: Room Air Assessment Airway patent: Yes Spontaneous unlabored respirations: Yes Mental status: Awake and Calm nausea: No Vomiting: No Anesthesia Complication: No Fluid Hydration Crystalloid volume administer (ml): 1,300 Total IV fluid infused: 1,300 Progress Note Anesthesia document: Postop Eval 1 completed: Yes
[2024-01-20] MEDS: HYDROcodone Bitartrate/Apap 5/325 Tablet PO (15:41)
--- NOTE | 2024-01-20 17:40 | POSTOPAN2_ITS ---
Anesthesia Postop Eval I Sum Postop Eval Completion status Anesthesia document: Postop Eval 1 completed: Yes Anesthesia Postop Eval I Summary Anesthesia Postop Eval I Summary: Anesthesia Postop Eval I: Assessment Summary Airway patent Yes 01/20/24 15:03 NIGHT [email or web address].[email or web address] Spontaneous unlabored Yes 01/20/24 15:03 NIGHT BAKER.GDOTT respirations Mental status Awake,Calm 01/20/24 15:03 NIGHT [email or web address].GDOTT nausea No 01/20/24 15:03 NIGHT BAKER.GDOTT Vomiting No 01/20/24 15:03 NIGHT BAKER.GDOTT Anesthesia Postop Eval I: Fluid Summary Crystalloid volume administer 1,300 01/20/24 15:03 NIGHT BAKER.GDOTT (ml) Colloids volume administered ( ml) Blood Product volume administered (ml) Total IV fluid infused 1,300 01/20/24 15:03 NIGHT BAKER.GDOTT Anesthesia Postop Eval I: Summary Notes Anesthesia Complication No 01/20/24 15:03 NIGHT BAKER.GDOTT Anesthesia Complication Comment: Post-operative progress note Anesthesia: Postop Eval II Evaluation Mental status: Awake and Calm Pain Level: 1 nausea: No Vomiting: No Complications Anesthesia Complication: No
--- NOTE | 2024-01-20 17:40 | PCM.POSTANE2 ---
Anesthesia Postop Eval I Sum Postop Eval Completion status Anesthesia document: Postop Eval 1 completed: Yes Anesthesia Postop Eval I Summary Anesthesia Postop Eval I Summary: Anesthesia Postop Eval I: Assessment Summary Airway patent Yes 01/20/24 15:03 BURRER MACHINE.[email or web address] Spontaneous unlabored Yes 01/20/24 15:03 BURRER MACHINE.GDOTT respirations Mental status Awake,Calm 01/20/24 15:03 BURRER MACHINE.GDOTT nausea No 01/20/24 15:03 BURRER MACHINE.GDOTT Vomiting No 01/20/24 15:03 BURRER MACHINE.GDOTT Anesthesia Postop Eval I: Fluid Summary Crystalloid volume administer 1,300 01/20/24 15:03 BURRER MACHINE.GDOTT (ml) Colloids volume administered ( ml) Blood Product volume administered (ml) Total IV fluid infused 1,300 01/20/24 15:03 BURRER MACHINE.GDOTT Anesthesia Postop Eval I: Summary Notes Anesthesia Complication No 01/20/24 15:03 BURRER MACHINE.GDOTT Anesthesia Complication Comment: Post-operative progress note Anesthesia: Postop Eval II Evaluation Mental status: Awake and Calm Pain Level: 1 nausea: No Vomiting: No Complications Anesthesia Complication: No
== END 2024-01-20 16:50 | disposition home or self-care (01) ==
LOC: SDC 11:28 → AC 11:32
PROVIDERS: Referring Provider Obstetrics & Gynecology; Visit Provider Obstetrics & Gynecology
PROC: 0UJD8ZZ Inspection of Uterus and Cervix, Via Natural or Artificial Opening Endoscopic (ICD-10-PCS; CPT 58555; principal; 2024-01-20 12:45)
DX: T83.32XA Displacement of intrauterine contraceptive device, initial encounter (principal); X58.XXXA Exposure to other specified factors, initial encounter; K42.9 Umbilical hernia without obstruction or gangrene; Z86.16 Personal history of COVID-19
CPT/HCPCS: 58555; 49329; 49591; 00952; 76000; 81025; 85027; 86850; 86900; 86901; J7120; J2405

== ENCOUNTER → 2024-02-27 | Outpatient (CLI) | payer SELFPAY ==
--- NOTE | 2024-02-27 10:53 | CT_ITS ---
STUDY: CT ABDOMEN AND PELVIS WITH CONTRAST REASON FOR EXAM: Female, 33 years old. Abd/pelvic pain. Recent IUD removal. RADIATION DOSAGE (If Supplied By Facility): CTDIvol = ( 12.04 ) mGy, DLP = ( 578.72 ) mGycm TECHNIQUE: Transaxial images were obtained from the dome of the diaphragm to the symphysis pubis with oral contrast. Oral and amp; IV Readi-CAT and amp; 100mL Isovue-300 was administered. Sagittal and coronal images were reconstructed. Individualized dose optimization techniques were used for this CT. COMPARISON: None. FINDINGS: The visualized lung bases are unremarkable. The visualized portions of the heart are within normal limits. Normal liver. Normal gallbladder and extrahepatic biliary system. Normal spleen. Normal pancreas. Normal bilateral adrenal glands. Normal right kidney. Normal left kidney. Normal visualized stomach. Normal small intestine. Normal colon. The appendix is visualized and appears normal. Normal abdominal aorta. Normal inferior vena cava. Normal retroperitoneum. Normal urinary bladder. Heterogeneous appearance of the uterus suggestive of possible fibroid change. Prominent periuterine veins. Normal abdominal wall. Minimal anterior listhesis of L5 on S1. 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 CT/Abdomen/Pelvis WITH Contrast IMPRESSION: Heterogeneous appearance of the uterus suggestive of fibroid change. Prominent periuterine venous channels. Electronically Signed: Dl Massey MD at 12:08 EDT ,
--- OUTSIDE RECORDS SUMMARY | 2024-02-27 11:15 | XMS RPT_ITS | CCD ---
Author Organization [facility] Care Team Providers Care Plow Holder Name Role Phone TOWER, HEATH E Unavailable Unavailable TOWER, HEATH E Unavailable Unavailable TOWER, HEATH E Unavailable Unavailable TOWER, HEATH E Unavailable Unavailable MAI BRAMBILA Referring Unavailmcai e NO PRIMARY CARE, Primary Care Unavailable LAURA HENRY Attending Unavailable NO PRIMARY CARE, Primary Care Unavailable KASANDRA BERRIOS Attending Unavailable LAURA HENRY Referring Unavailable LAURA HENRY Referring Unavailable NO PRIMARY CARE, Primary Care Unavailable LAURA HENRY Attending Unavailable LAURA HENRY Referring Unavailable NO PRIMARY CAREMD Primary Care Unavailable KASANDRA BERRIOS Attending Unavailable NO PRIMARY CARE, Primary Care Unavailable KASANDRA BERRIOS Attending Unavailable LAURA HENRY Referring Unavailable NO PRIMARY CAREMD Primary Care Unavailable GIOVANNI KOROMA Attending Unavailable LAURA HENRY Referring Unavailable KASANDRA BERRIOS Attending Unavailable NO PRIMARY CAREMD Primary Care Unavailable LAURA HENRY Referring Unavailable RHONDA ALLEN Attending Unavailable NO PRIMARY CAREMD Primary Care Unavailable LAURA HENRY Referring Unavailable LAURA HENRY Attending Unavailable NO PRIMARY CAREMD Primary Care Unavailable LAURA HENRY Referring Unavailable KASANDRA BERRIOS Attending Unavailable NO PRIMARY CAREMD Primary Care Unavailable LAURA HENRY Referring Unavailable Problems Problem Classification Problem Date Documented Da te Episodic/Chronic Unclassified (1 source) Unknown / UNK(Unknown) Onset: 08-06-2017 Results Test Name Value Interpretation Reference Range Facility HCG,Urine Qualon 09-29-2018 HCG.beta subunit ( test) Ql (U) Negative Normal Negative [facility] Comment on above: Result Comment: Preg harriet is the most common reason for HCG in urine, although choriocarcinoma, hydatidiform mole, and certain nontropho- blastic malignancies also result in detectable urinary HCG levels. Sensitivity = 20mIU/mL. Performed By: #### H CGUR #### [facility] [place] [address] GLUCOSE,FASTINGon 07-16-2018 Glucose mass conc 91 mg/dL Normal 74 - 99 [facility] Comment on above: Order Comment: PATIE NT FASTING Result Comment: INCR EASED RISK FOR DIABETES 100-125 mg/dL DIAGNOSTIC OF DIABETES >=126 mg/dL Diagnosis of diabetes mellitus requires confirmation of an abnormal result by repeat testing. [place] [employer], Diabetes Care; 33(Supp 1), May 2009. Performed By: #### G LUCF #### [facility] [address] [place] [address] HEPATIC FUNCTION PANELon ALP enzyme act/vol 58 U/L Normal 33 - 110 [facility] Comment on above: Order Comment: PATIE NT FASTING Performed By: #### H EPFP #### [facility] [address] [place] [address] ALT enzyme act/vol 14 U/L Normal 7 - 45 [facility] Comment on above: Order Comment: PATIE NT FASTING Result Comment: Giana ents treated with Sulfasalazine may generate falsely decreased results for ALT. Performed By: #### H EPFP #### [facility] [address] [place] [address] AST enzyme act/vol 15 U/L Normal 9 - 39 [facility] Comment on above: Order Comment: PATIE NT FASTING Performed By: #### H EPFP #### [facility] [address] [place] [address] Bilirubin mass conc 0.5 mg/dL Normal 0.0 - 1.2 [facility] Comment on above: Order Comment: PATIE NT FASTING Performed By: #### H EPFP #### [facility] [address] [place] [address] Bilirubin.direct mass conc 0.1 mg/dL Normal 0.0 - 0.3 [facility] Comment on above: Order Comment: PATIE NT FASTING Performed By: #### H EPFP #### [facility] [address] [place] [address] Protein mass conc 6.6 g/dL Normal 6.4 - 8.2 [facility] Comment on above: Order Comment: PATIE NT FASTING Performed By: #### H EPFP #### [facility] [address] [place] [address] INSULIN, FASTINGon 9 INSULIN, FASTING 6 uIU/mL Normal 3 - 19 [facility] Comment on above: Order Comment: PATIE NT FASTING Performed By: #### F IN #### [facility] [address] [place] [address] RENAL FUNCTION PANELon 07-16 Albumin mass conc 4.5 g/dL Normal 3.4 - 5.0 [facility] Comment on above: Order Comment: PATIE NT FASTING Performed By: #### R ENAL #### [facility] [address] [place] [address] Performed By: #### H EPFP #### [facility] [address] [place] [address] Anion gap molar conc 12 mmol/L Normal 10 - 20 [facility] Comment on above: Order Comment: PATIE NT FASTING Performed By: #### R ENAL #### [facility] [address] [place] [address] Calcium mass conc 9.4 mg/dL Normal 8.6 - 10.6 [facility] Comment on above: Order Comment: PATIE NT FASTING Performed By: #### R ENAL #### [facility] [address] [place] [address] Chloride molar conc 106 mmol/L Normal 98 - 107 [facility] Comment on above: Order Comment: PATIE NT FASTING Performed By: #### R ENAL #### [facility] [address] [place] [address] Creatinine mass conc 0.80 mg/dL Normal 0.50 - 1.05 [facility] Comment on above: Order Comment: PATIE NT FASTING Performed By: #### R ENAL #### [facility] [address] [place] [address] GFR- AM. >60 Normal >60 [facility] Comment on above: Order Comment: PATIE NT FASTING Result Comment: CALC ULATIONS OF ESTIMATED GFR ARE PERFORMED USING THE MDRD STUDY EQUATION FOR THE IDMS-TRACEABLE CREATININE METHODS. CLIN CHEM 2007;53:766-72 Performed By: #### R ENAL #### [facility] [address] [place] [address] GFR-NON AM. >60 Normal >60 [facility] Comment on above: Order Comment: PATIE NT FASTING Performed By: #### R ENAL #### [facility] [address] [place] [address] Glucose mass conc 99 mg/dL Normal 74 - 99 [facility] Comment on above: Order Comment: PATIE NT FASTING Performed By: #### R ENAL #### [facility] [address] [place] [address] HCO3 molar conc (Bld) 26 mmol/L Normal 21 - 32 [facility] Comment on above: Order Comment: PATIE NT FASTING Performed By: #### R ENAL #### [facility] [address] [place] [address] Phosphate mass conc 3.3 mg/dL Normal 2.5 - 4.9 [facility] Comment on above: Order Comment: PATIE NT FASTING Result Comment: The performance characteristics of phosphorus testing in heparinized plasma have been validated by the individual laboratory site where testing is performed. Testing on heparinized plasma is not approved by the FDA; however, such approval is not necessary. Performed By: #### R ENAL #### [facility] [address] [place] [address] Potassium molar conc 4.6 mmol/L Normal 3.5 - 5.3 [facility] Comment on above: Order Comment: PATIE NT FASTING Performed By: #### R ENAL #### [facility] [address] [place] [address] Sodium molar conc 139 mmol/L Normal 136 - 145 [facility] Comment on above: Order Comment: PATIE NT FASTING Performed By: #### R ENAL #### [facility] [address] [place] [address] Urea nitrogen mass conc 20 mg/dL Normal 6 - 23 [facility] Comment on above: Order Comment: RADHA NT FASTING Performed By: #### R ENAL #### [facility] [address] [place] [address] Lupus Anticoag Panelon 04-16 Interpretation Normal [facility] Comment on above: Result Comment: (NOT E) Performing Pathologist: Dr. Lukas Lancaster MD Interpretation: Normal -see comment below. Laboratory testing was performed to evaluate the presenceof a lupus anticoagulant and anti-phospholipid antibodies. The PT and APTTvalues are both within the normal range. A normal thrombin time (TT) makes aheparin and/or direct thrombin inhibitor effect unlikely. LUPUSANTICOAGULANT STUDIES: There is no evidence for a lupus anticoagulant or othercoagulation inhibitor at this time. ANTIPHOSPHOLIPID ANTIBODY STUDIES: TheIgG, IgM and IgA anticardiolipin antibody titers were all negative. Both theIgG and IgM Beta-2 Glycoprotein I antibody titers were negative. Thecriteria for the diagnosis of a Lupus Anticoagulant, as detailed by theSubcommittee on Lupus Anticoagulants and Anti-Phospholipid Antibodies of theScientific and Standardization Committee of the International Society onThrombosis and Haemostasis (ISTH), are the following: (1) A prolongedphospholipid-dependent clotting test (screening test); (2) Evidence for aninhibitor (1:1 mix of patient:normal plasma); (3) Evidence that the inhibitoris phospholipid dependent and (4) Exclusion of specific inhibitors (ie, fVIIIinhibitors, direct thrombin inhibitors, or heparin). Thromb. Haemost. 74:1185(1995). Lupus Anticoag Panelon 04-15 aPTT Coag time (Bld) 31.8 s Normal <35.0 [facility] Lab aPTT Coag time (Bld) 29.7 s Normal 24.4-33.4 [facility] aPTT Coag time (Bld) 28.9 s Normal <33.2 [facility] DRVVT 1:1 Mix 36.7 sec Normal 32.7-46.7 [facility] DRVVT Confirm Ratio 0.95 Normal <1.21 [facility] Lab DRVVT Screen 33.9 sec Normal 32.7-46.7 [facility] Lab Hex Phase Confirm 47.7 sec Normal 41.8-54.9 [facility] Reference Lab Hex Phase Delta 2.4 delta sec Normal <9.1 [facility] Reference Lab Hex Phase Screen 50.1 sec Normal 45.0-59.9 [facility] Reference Lab PNP NEGAT Normal Negative [facility] Thrombin Time 15.6 sec Normal <18.6 [facility] IgA Cardiolipin Ab. <9 Normal 0-11 [facility] Lab IgG Cardiolipin Ab. <9 Normal 0-9 [facility] IgM Cardiolipin Ab. 9 MPL Normal 0-11 [facility] Beta2 Glycoprot IgG <9 Normal <20 [facility] Lab Protein mass conc g/dL Normal <20 [facility] Lupus Anticoag Panelon 04-14 aPTT Coag time (Bld) 26.3 s Normal 23.0-32.4 [facility] Lab INR Coag RelTime (PPP) 1.0 {INR} Normal 0.9-1.3 Cl [facility] Reference Lab PT Sec 11.1 sec Normal 9.7-13.0 [facility] HCG, Quantitative Blon 04-11 HCG, Quantitative Bl 41.4 mU/mL High <5.0 [facility] Comment on above: Performed By: #### H CGQT ####[facility] [address] [place], [place] [phone] HCG, Quantitative Blon 04-08 HCG, Quantitative Bl 64.1 mU/mL High <5.0 [facility] Comment on above: Performed By: #### H CGQT ####[facility] [address] [place], [place] [phone] OPERATIVE NOon 11-12-2017 OPERATIVE NO HNO ID: [id number]: Heath CarrascoerService: GynecologyAuthor Type: PhysicianType: Operative ReportFiled: 11/16/2017 11:13 AMNote Text:[facility] Operative ReportRABERCHERMRN: [id number] ACCTNUM: [id number] TYPE: LOCATION: - [facility]: Heath Carrascoer, MDPROCEDURE DATE11/12/2017PREOPERATI VE DIAGNOSISBicornuate uterus.POSTOPERATIVE DIAGNOSISBicornuate uterus.OPERATIVE PROCEDUREHysterosalpingo gram.SURGEONHeath lockett MD.ANESTHESIANone.ABIODUN Verdugo is a 26-year-old female with a known bicornuate uterus. It is feltthat we should establish the nature of this structure more effectivelyusing a hysterosalpingogram. Preoperative consultation discussed thepatient completely. Informed written and verbal consent obtained. Thepatient was informed of the procedure and its process as it was beingperformed.A bivalve speculum was used to visualize the cervix. The cervix was thenprepped using Betadine. The cervix was grasped using a single-toothtenaculum and then it was dilated slightly to a #12 dilatation.Hysterosalpin gogram catheter was placed within the endometrial cavity.The balloon was inflated and the patient positioned for fluoroscopy. Theuterus was then injected approximately 5 mL of radiopaque dye. There wasprompt bilateral spillage on both sides. The 2 separate chambers ofequal dimension were seen compatible with a bicornuate uterus. This didconclude the procedure.Suggestion made for attempting conception during process as far as how thepregnancy would progress. Surgical procedure at this time would be quitedifficult due to the fact that there was no real septum in the midlineand 2 equal horns were seen. We will observe for fertility and futuredevelopments. All questions discussed with the patient. The patient wasobserved supine for approximately 10 minutes postprocedure. The patienttolerated the procedure well. There was no estimated blood loss.Complications none. CBAY DOC: [id number]: [facility] XR HYSTEROSALPINGOGRAMon XR HYSTEROSALPINGOGRAM * * *Final Report * * *DATE OF EXAM: Nov 12 2017 9:37AM HCX [id number] - XR HYSTEROSALPINGOGRAM / REASON: infertility fallopian testing * * * * Physician Interpretation * * * *RESULT: EXAMINATION: HysterosalpingogramHISTO RY: Infiltrate silhouetting testingTECHNIQUE: Fluoroscopic Radiation Summary:Plane A, Air Kerma: No Dose ReportedDose Area Product (DAP): 0.0 mGy*vxW3Qyygel time: 0:04 min:secRESULTS: Procedure performed with Dr. Heath Lockett. No radiologist in attendance.Contrast was injected into the uterus showing a bicornuate appearance. Contrast fills both fallopian tubes with bilateral spilling consistent with tubal patency.IMPRESSION: Tubal patency. Bicornuate type uterus.Transcribed Using Voice RecognitionTranscribe Date/Time: Nov 12 2017 3:14PDictated by: PATEL CORMIER MDThishiva examination was interpreted and the report reviewed and electronically signed by: PATEL CORMIER MD on Nov 12 2017 3:15PM [id number] N Normal [facility] HCG, Quantitative Blon 09-10 HCG, Quantitative Bl 6.2 mU/mL High <5.0 [facility] Comment on above: Performed By: #### H CGQT ####[facility] [address] [place], [place] [phone] HCG, Quantitative Blon 09-09 HCG, Quantitative Bl 14.4 mU/mL High <5.0 [facility] Comment on above: Performed By: #### H CGQT ####[facility] [address] [place], [place] [phone] Type and Scr,Prenatlon 09-08 Type and Scr,Prenatl ABO/RH(D): %O %POS Antibody Screen: %NEG Crossmatch Expiration: 09/11/2017 Order Type: BBK Normal [facility] Comment on above: Performed By: #### T SPN ####See report for performing lab information. HPV w/Genotypeon 08-06-2017 HPV HighRisk Other PCR. Normal [facility] Reference Lab HPV HighRisk Type 16 NHPV16 Normal [facility] Reference Lab HPV HighRisk Type 18 NHPV18 Normal [facility] US FEMALE PELVIS TRANSABD LT Don 08-06-2017 US FEMALE PELVIS TRANSABD LTD * * *Final Report* * *DATE OF EXAM: Aug 06 2017 9:01AM [facility] 1059 - US FEMALE PELVIS TRANSABD LTD / REASON: Irregular menstruation * * * * Physician Interpretation * * * *RESULT: EXAMINATION: TRANSVAGINAL AND TRANSABDOMINAL LIMITED PELVIC ULTRASOUNDHISTORY: Irregular menstruationTECHNIQUE: Sonography of the pelvis was performed by transvaginal and transabdominal (limited) techniques. Images were obtained and stored in a permanent archive.MQ: UFP_1COMPARISON: NoneRESULT:Uterus size: 8.4 x 5.3 x 3.5 cm -Orientation: Normal alignment -Myometrium: Normal sonographic appearance. Bicornuate appearance -Endometrial echo complex: 0.5 cm on the right. 0.4 cm on the left -Cervix: normalRight ovary: 4 x 2.5 x 2.2 cm Normal sonographic appearance. Follicles presentLeft ovary: 3.8 x 2.6 x 2.6 cm Normal sonographic appearance. Follicles present.Pelvis free fluid: None.IMPRESSION:NORMAL BICORNUATE SONOGRAPHIC APPEARANCE OF THE FEMALE PELVIS.Transcribed Using Voice RecognitionTranscribe Date/Time: Aug 06 2017 9:30ADictated by: PATEL CORMIER MDThis examination was interpreted and the report reviewed and electronically signed by: PATEL CORMIER MD on Aug 06 2017 9:33AM [id number] [facility] US FEMALE PELVIS TRANSVAGon 08-06-2017 US FEMALE PELVIS TRANSVAG * * *Final Report* * *DATE OF EXAM: Aug 06 2017 9:01AM [facility] 1060 - US FEMALE PELVIS TRANSVAG / REASON: Irregular menstruation * * * * Physician Interpretation * * * *RESULT: EXAMINATION: TRANSVAGINAL AND TRANSABDOMINAL LIMITED PELVIC ULTRASOUNDHISTORY: Irregular menstruationTECHNIQUE: Sonography of the pelvis was performed by transvaginal and transabdominal (limited) techniques. Images were obtained and stored in a permanent archive.MQ: UFP_1COMPARISON: NoneRESULT:Uterus size: 8.4 x 5.3 x 3.5 cm -Orientation: Normal alignment -Myometrium: Normal sonographic appearance. Bicornuate appearance -Endometrial echo complex: 0.5 cm on the right. 0.4 cm on the left -Cervix: normalRight ovary: 4 x 2.5 x 2.2 cm Normal sonographic appearance. Follicles presentLeft ovary: 3.8 x 2.6 x 2.6 cm Normal sonographic appearance. Follicles present.Pelvis free fluid: None.IMPRESSION:NORMAL BICORNUATE SONOGRAPHIC APPEARANCE OF THE FEMALE PELVIS.Transcribed Using Voice RecognitionTranscribe Date/Time: Aug 06 2017 9:30ADictated by: PATEL CORMIER MDThis examination was interpreted and the report reviewed and electronically signed by: PATEL CORMIER MD on Aug 06 2017 9:33AM [id number] Normal [facility] DHEA-Son 08-05-2017 DHEA-S 145.4 ug/dL Normal 98.8-340.0 [facility] Comment on above: Performed By: #### T ESTO, DHEAS ####[facility] [address], [place] [phone]#### INSULN ####[facility] [address]CGray[address], [place] [phone] Insulinon 08-05-2017 Insulin 5.8 uU/mL Normal 1-24 [facility] Comment on above: Performed By: #### T ESTO, DHEAS ####[facility] [address], [place] [phone]#### INSULN ####[facility] [address]levelandWal[place], [place] [phone] Testosteroneon 08-05-2017 Testosterone mass conc 31 ng/dL Normal <40 [facility] Reference Lab Comment on above: Performed By: #### T ESTO, DHEAS ####[facility] [address], [place] [phone]#### INSULN ####[facility] [address] [place], [place] [phone] CYTOLOGYon 08-04-2017 CYTOLOGY ADDITIONA L PROCEDURES PRESENT Specimen #: [id number] Physician: HEATH LOCKETT M.D.SPECIMEN SUBMITTEDA: CERVICAL, SCREENING, FLUID FINAL DIAGNOSISA. CERVICAL, SCREENING, FLUIDSatisfactory for interpretation.Negative for intraepithelial lesion or malignancy.This specimen has been analyzed by the ThinPrep Imaging System, anautQuick TVed imaging and review system, which assists the laboratory inevaluating cells on ThinPrep Pap tests. Following automated imaging,selected roth from every slide are reviewed by a construction driver.JOAQUIN Hannon (Electronic Signature) ADDIT IONAL PROCEDURE(S)HUMAN PAPILLOMA VIRUS Date Ordered: 08/05/2017 Date Reported: 08/06/2017 Procedure Results and InterpretationNegative for HPV DNA high risk type 16 by PCR.Negative for HPV DNA high risk type 18 by PCR.Negative for HPV DNA high risk types: 31,33,35,39,45,51,52,56, 58,59,66,68by PCR.This test was developed and its performance characteristics determined by[facility] ([facility]).It has not been cleared or approved by the FDA. [facility] is regulated underCLIA as qualified to perform high-complexity testing. This test is used forclinical purposes. It should not be regarded as investigational or forresearch.CLINICAL DATA Date of Last Menstrual Period:1 month agoClinical History:ROUTINESTAINSA: CERVICAL, SCREENING, FLUID THIN PREP GYNCher Jimenez M.D., Laboratory DirectorPatient ID #: [id number] of Report: 08/08/2017Date of Procedure: 08/04/2017Date of Receipt: 08/05/2017Submitted by: HEATH LOCKETT M.D.Location: Diagnostic interpretation performed at [facility], [address] [place] [address].The Pap Smear is a screening test for cervical cancer. False negativeresults occur with all screening tests, emphasizing the need forrescreening at recommended intervals, and clinical correlation. Normal [facility] Comment on above: Performed By: #### C ####See report for performing lab information. Prolactinon 05-31-2017 Protein mass conc 10.3 ng/mL Normal 4.5-26.8 [facility] Reference Lab Comment on above: Performed By: #### T SH, PROL ####[facility] [address] [place], [place] [phone] TSHon 05-31-2017 Thyrotropin Qn 1.850 uU/mL Normal 0.400-5.500 [facility] Reference Lab Comment on above: Performed By: #### T SH, PROL ####[facility] [address] [place], [place] [phone] Encounters Encounter Date Encounter Type Care Provider Facility Start: 11-17-2023 End: 11-17-2023 ambulatory LAURA HENRY [facility] Start: 11-10-2023 End: 11-10-2023 ambulatory LAURA HENRY [facility] Start: 11-03-2023 End: 11-03-2023 ambulatory MD SHRESTHA PRIMARY CARE [facility] Start: 10-27-2023 End: 10-27-2023 ambulatory MAI ORTIZONY [facility] Start: 10-20-2023 End: 10-20-2023 ambulatory KASANDRA Jeronimo BERRIOS [facility] Start: 10-13-2023 End: 10-13-2023 ambulatory LAURA Shiva CARL [facility] Start: 10-02-2023 End: 10-02-2023 ambulatory RHONDA ALLEN [facility] Start: 09-08-2023 End: 09-08-2023 ambulatory KASANDRA Jeronimo BERRIOS [facility] Start: 08-07-2023 End: 08-07-2023 ambulatory NO PRIMARY CARE [facility] Start: 07-10-2023 End: 07-10-2023 ambulatory NO PRIMARY CARE [facility] Start: 07-16-2018 Patient encounter procedure Facility:[facility] Start: 11-12-2017 End: 11-13-2017 Patient encounter HEATH E HOPEWELLSB [facility] Start: 08-06-2017 Patient encounter HEATH Zepeda [facility] Payers Date Payer Category Payer Unknown [id number] 06.20. [id number] 1989 Unknown [id number] 06.20. [id number]. 1989 Unknown [id number] 06.20. [id number]. 1989 Unknown [id number] 06.20. [id number] 1989 Unknown [id number] 06.20. [id number] 1989 Unknown [id number] 06.20. [id number] 1989 Unknown [id number] 06.20. [id number] 1989 Unknown [id number] 06.20. [id number] 1989 Unknown [id number] 2.16. [id number] 1989 Unknown [id number] 2.16. [id number] 1989 Unknown [id number] 2.16. [id number] Unknown [id number] Unknown [id number] Summary Purpose Family History No Family History [...] ized section and content) DATE CREATED AUTHOR 10/23/2017 [facility] DATE CREATED AUTHOR AUTHOR'S ORGANIZ ATION [facility]16[facility] DATE CREATED AUTHOR AUTHOR'S ORGANIZ ATION 04/19/2018 [facility] DATE CREATED AUTHOR AUTHOR'S ORGANIZ ATION 07/17/2018 [facility] DATE CREATED AUTHOR AUTHOR'S ORGANIZ ATION 10/11/2018 [facility] DATE CREATED AUTHOR AUTHOR'S ORGANIZ ATION 11/21/2023 [facility] FOR RECORDS PERTAINING TO PATIENTS WHO ARE [...] BE BASED ON THE PRIMARY CLINICAL RECORDS. [employer] provides no warranty or guarantee of the accuracy or completeness of information in this document.
== END | disposition home or self-care (01) ==
LOC: CT 10:51
PROVIDERS: Referring Provider Obstetrics & Gynecology; Visit Provider Obstetrics & Gynecology
DX: G89.18 Other acute postprocedural pain (principal); R10.9 Unspecified abdominal pain; R22.2 Localized swelling, mass and lump, trunk; K42.9 Umbilical hernia without obstruction or gangrene
CPT/HCPCS: 74177; Q9967

== ENCOUNTER → 2025-04-22 | Outpatient (CLI) | payer OTHER, SELFPAY ==
[2025-04-22 17:44] LABS: Cholesterol 171 mg/dL (<=200); Low Density Lipoprotein Calc. 92 mg/dL; Triglycerides 61 mg/dL; Very Low Density Lipoprotein 12 mg/dL (5-40); Vitamin D,25 Hydroxy 36.8 ng/mL (30-100); cholesterol:hdl ratio screen 2.54
[2025-04-27 13:08] LABS: HPV APTIMA, High Risk Negative (Negative)
== END | disposition home or self-care (01) ==
PROVIDERS: Visit Provider Advanced Practice Midwife
DX: Z12.4 Encounter for screening for malignant neoplasm of cervix (principal); Z13.220 Encounter for screening for lipoid disorders; Z13.29 Encounter for screening for other suspected endocrine disorder
CPT/HCPCS: 36415; 80061; 82306; 84443; 87624; 88175; G0145